=== PATIENT | female | born 1955 | race Caucasian/White ===

== ENCOUNTER 2020-01-02 18:07 | Outpatient (CLI) | payer OTHER, SELFPAY ==
[2020-01-02 18:21] LABS: Basophils Absolute Auto 0.05 K/mm3 (0.00-0.10); Basophils Percent Auto 0.6 % (0.0-1.0); Eosinophils Absolute Auto 0.46 K/mm3 (0.02-0.50); Eosinophils Percent Auto 5.5 % (1.0-6.0); Hematocrit 40.9 % (35.0-49.0); Hemoglobin 13.9 g/dL (12.0-15.0); Immature Granulocyte Absolute 0.02 K/mm3 (0.00-0.00); Immature Granulocyte Percent A 0.2 % (0.0-0.0); Lymphocytes Absolute Auto 2.99 K/mm3 (1.10-4.50); Lymphocytes Percent Auto 35.8 % (18.0-42.0); Mean Corpuscular Hemoglobin 32.1 pg (27.0-31.0); Mean Corpuscular Volume 94.5 fL (78.0-102.0); Mean Platelet Volume 10.1 fl (9.2-11.8); Monocytes Absolute Auto 0.65 K/mm3 (0.10-0.90); Monocytes Percent Auto 7.8 % (2.0-11.0); Neutrophils Absolute Auto 4.2 K/mm3 (1.7-7.2); Neutrophils Percent Auto 50.1 % (50.0-70.0); Platelet Count Result 242 K/mm3 (150-420); Red Blood Count 4.33 M/mm3 (4.20-5.40); Red Cell Distribution Width 12.3 % (11.6-14.4); White Blood Count 8.4 K/mm3 (4.8-10.8)
[2020-01-02 19:04] LABS: Alanine Aminotransferase 22 U/L (14-59); Albumin Level 3.6 g/dL (3.4-5.0); Alkaline Phosphatase 78 U/L (46-116); Anion Gap 12.4 mmol/L (7-16); Aspartate Amino Transferase 13 U/L (15-37); Bilirubin,Total 0.3 mg/dL (0.00-1.00); Blood Urea Nitrogen 19 mg/dL (7-18); Calcium 8.7 mg/dL (8.5-10.1); Carbon Dioxide 29 mmol/L (21-32); Chloride 100 mmol/L (98-108); Cholesterol 175 mg/dL (0-200); Creatine Kinase 58 U/L (26-192); Estimated Glomerular Filt Rate > 60; Glucose 230 mg/dL (70-99); HDL Direct 82 mg/dL (40-60); LDL Cholesterol Calculated 80 mg/dL (<130); Osmolality Calculated 293 mOsm/kg (285-295); Potassium 4.4 mmol/L (3.5-5.1); Sodium 137 mmol/L (136-145); Total Protein 6.6 g/dL (6.4-8.2); Triglycerides 67 mg/dL (0-150)
== END 2020-01-02 18:08 | disposition home or self-care (01) ==
LOC: CHSLAB 18:09
PROVIDERS: PCP Family Medicine; Visit Provider Family Medicine
DX: E78.2 Mixed hyperlipidemia (principal); I10 Essential (primary) hypertension
CPT/HCPCS: 36415; 80053; 80061; 82550; 85025

== ENCOUNTER 2020-02-09 10:40 | Outpatient (CLI) | payer OTHER, SELFPAY ==
[2020-02-09 11:12] LABS: Creatinine Urine 38.96 mg/dL (40-278)
[2020-02-09 11:20] LABS: MALB Creatinine Ratio 3.3 mg/g (0-30); Microalbumin Urine Random < 1.3 mg/L
== END 2020-02-09 10:41 | disposition home or self-care (01) ==
LOC: CHSLAB 10:41
PROVIDERS: PCP Family Medicine; Visit Provider Internal Medicine Endocrinology, Diabetes & Metabolism
DX: E10.9 Type 1 diabetes mellitus without complications (principal)
CPT/HCPCS: 82043

== ENCOUNTER 2020-06-13 08:32 | Outpatient (CLI) | payer OTHER, SELFPAY ==
[2020-06-13 09:17] LABS: SARS-CoV-2 Ag Negative (Negative)
== END 2020-06-13 08:33 | disposition home or self-care (01) ==
PROVIDERS: PCP Family Medicine; Visit Provider Family Medicine
DX: Z20.828 Contact with and (suspected) exposure to other viral communicable diseases (principal)
CPT/HCPCS: 87426

== ENCOUNTER 2020-06-13 14:09 | Outpatient (CLI) | payer OTHER, SELFPAY ==
--- NOTE | ~2020-06-13 | MM_ITS ---
EXAMINATION: MM screening priti BI w preethi HISTORY: Screening mammogram TECHNIQUE: Craniocaudal and mediolateral oblique 3-D tomosynthesis images were obtained and synthetic 2-D images were generated. CAD analysis was submitted and interpreted. COMPARISON: 05/31/2019, 05/11/2018, 05/04/2017 bilateral digital screening mammogram examinations BREAST PARENCHYMAL COMPOSITION: There are scattered areas of fibroglandular density. FINDINGS: There are occasional scattered bilateral benign calcifications. There is no evidence of gavino picious mass, calcification, or architectural distortion to suggest malignancy in either breast. Ther e has been no suspicious interval change. IMPRESSION: 1. No mammographic evidence of malignancy. 2. Recommend routine screening mammography in one year. BI-RADS Category 1: Negative Reviewed, dictated and finalized at location A. [employer]
--- NOTE | ~2020-06-13 | DEXA_ITS ---
Bone Density Report Name: Tara Agosto Age: 65 Sex: Female Ethnicity: White Date of : 1955 Indication: postmenopausal; screening for osteoporosis; height loss; Referring Provider: An Cabral Study: Bone densitometry was performed. Exam Date: June 13, 2020 Accession number: [id number] Bone Density: Region BMD T-score Z-score Classification AP Spine(L2, L3, L4) 1.292 1.9 3.6 Normal Femoral Neck (Left) 0.561 -2.6 -1.2 Osteoporosis Total Hip (Left) 0.912 -0.2 0.9 Normal Femoral Neck (Right) 0.678 -1.5 -0.1 Osteopenia Total Hip (Right) 0.917 -0.2 0.9 Normal Femoral Neck Mean 0.620 -2.1 -0.6 Osteopenia Total Hip Mean 0.915 -0.2 0.9 Normal World Health Organization criteria for BMD impression classify patients as: Normal (T-score at or above -1.0), Osteopenia (T-score between -1.0 and -2.5), or Osteoporosis (T-score at or below -2.5). 10-year Fracture Risk: FRAX not reported because: Some T-score for Spine Total or Hip Total or Femoral Neck at or below -2.5 Previous Exams: Region Exam Age BMD T-score BMD Change BMD Change Date g/cm2 vs Baseline vs Previous AP Spine (L2-L4) 06/13/2020 65 1.292 1.9 0.180 (16.2%)# 0.180 (16.2%)# 05/29/2012 57 1.112 0.3 Total Hip(Left) 06/13/2020 65 0.912 -0.2 -0.052 (-5.4%) -0.052 (-5.4%) 05/29/2012 57 0.965 0.2 Total Hip(Right) 06/13/2020 65 0.917 -0.2 -0.062 (-6.3%) -0.062 (-6.3%) 05/29/2012 57 0.979 0.3 *Denotes significance at 95% confidence level, LSC for AP Spine = 0.022 g/cm2, LSC for Total Hip = 0.027 g/cm2 # Denotes dissimilar scan types or analysis methods Clinical Information Provided by Patient: Patient maximum height was 67 Menopause Age: 47 Drinks caffeinated beverages Onset of menses at age 16 Number of children 0 Impression: The patient has osteoporosis, based on the Left Femoral Neck T-score. No significant bone loss was observed. Discussion: INCREASED RISK OF FRACTURE. BONE DENSITY IS UNDESIRABLY LOW AT ONE OR MORE SKELETAL SITES, CONSISTENT WITH POSTMENOPAUSAL OSTEOPOROSIS. This patient's lowest T-score meets the World Health Organization's (WHO) criteria for osteoporosis at one or more sites (T-score -2.5 or below). In untreated patients, the risk of osteoporotic fracture increases approximately two-fold for each 1.0 SD decrease in T-score. Low bone density is not the only risk factor for fracture; also consider factors suc
== END 2020-06-13 14:10 | disposition home or self-care (01) ==
LOC: CHSIMG 14:11
PROVIDERS: PCP Family Medicine; Visit Provider Student in an Organized Health Care Education/Training Program
DX: Z78.0 Asymptomatic menopausal state (principal); Z12.31 Encounter for screening mammogram for malignant neoplasm of breast
CPT/HCPCS: 77063; 77067; 77080

== ENCOUNTER 2020-07-23 15:58 | Outpatient (CLI) | payer OTHER, SELFPAY ==
--- NOTE | ~2020-07-23 | US_ITS ---
EXAMINATION: US pelvic complete w TV DATE: 07/23/2020 16:59 INDICATION: Postmenopausal bleeding TECHNIQUE: Multiple transabdominal and endovaginal sonographic images of the pelvis were obtained. COMPARISON: None. FINDINGS: The uterus measures 8.2 x 8.3 x 5.3 cm. Thickened endometrial complex measuring 2.3 cm with heterogen eous appearance with few small central cystic spaces. 3.9 x 3.1 cm subserosal fibroid at the right si de of the posterior fundus with prominent coarse shadowing calcifications. There are a few additional smaller shadowing calcifications likely related to additional fibroids. 6 mm anechoic nabothian cyst s at the cervix. The left and right ovaries are not visualized. There is no free fluid in the pelvis. IMPRESSION: 1. Heterogeneous thickened endometrial complex. Differential would include malignancy, endometrial hy perplasia, endometrial polyp or submucosal fibroid. Recommend further evaluation with hysteroscopy. 2. Multiple calcified uterine fibroids measuring up to 3.9 cm. Reviewed, dictated and finalized at location A. [employer] IMPRESSION: 1. Heterogeneous thickened endometrial complex. Differential would include mason gnancy, endometrial hyperplasia, endometrial polyp or submucosal fibroid. Recom mend further evaluation with hysteroscopy. 2. Multiple calcified uterine fibroids measuring up to 3.9 cm.
== END 2020-07-23 15:59 | disposition home or self-care (01) ==
PROVIDERS: PCP Family Medicine; Visit Provider Student in an Organized Health Care Education/Training Program
DX: N95.0 Postmenopausal bleeding (principal); D25.9 Leiomyoma of uterus, unspecified
CPT/HCPCS: 76830; 76856

== ENCOUNTER 2020-08-02 07:10 | Outpatient (CLI) | payer OTHER, SELFPAY ==
[2020-08-04 18:27] LABS: SARS-CoV-2 RNA PCR Negative
== END 2020-08-02 07:11 | disposition home or self-care (01) ==
LOC: CHSLAB 07:12
PROVIDERS: PCP Family Medicine; Visit Provider Family Medicine
DX: Z20.822 Contact with and (suspected) exposure to COVID-19 (principal)
CPT/HCPCS: C9803; U0003; U0005

== ENCOUNTER → 2020-08-19 03:54 | Outpatient (CLI) | payer OTHER, SELFPAY ==
[2020-08-20 18:18] LABS: SARS-CoV-2 RNA PCR Negative
== END ==
PROVIDERS: PCP Family Medicine; Visit Provider Student in an Organized Health Care Education/Training Program
DX: Z01.812 Encounter for preprocedural laboratory examination (principal); Z20.822 Contact with and (suspected) exposure to COVID-19
CPT/HCPCS: C9803; U0003; U0005

== ENCOUNTER 2020-08-19 14:55 | Outpatient (CLI) | payer OTHER, SELFPAY ==
--- NOTE | 2020-08-19 14:59 | ECG_ITS ---
Measurements Intervals [place] Rate: 55 P: -7 MA: 234 QRS: 13 QRSD: 113 T: 35 QT: 447 QTc: 428 Interpretive Statements SINUS BRADYCARDIA WITH FIRST DEGREE AV BLOCK INTRAVENTRICULAR CONDUCTION DELAY POOR R WAVE PROGRESSION, ANTERIOR LEADS BASELINE ARTIFACT- I, II, III, AVR, AVL, AVF ABNORMAL ECG Electronically Signed On 08-19-2020 15:19:40 [employer] by Chidi Worthy D.O.
[2020-08-19 15:38] LABS: Anion Gap 6 mmol/L (8-16); Blood Urea Nitrogen 17 mg/dL (7-17); Calcium 8.6 mg/dL (8.4-10.2); Carbon Dioxide 30 mmol/L (22-30); Chloride 102 mmol/L (98-107); Estimated Glomerular Filt Rate > 60; Glucose 212 mg/dL (65-105); Sodium 138 mmol/L (137-145)
[2020-08-19 16:02] LABS: Potassium 3.9 mmol/L (3.4-5.0)
== END 2020-08-19 14:56 | disposition home or self-care (01) ==
PROVIDERS: Anesthesiology; PCP Family Medicine; Visit Provider Student in an Organized Health Care Education/Training Program
DX: E78.5 Hyperlipidemia, unspecified (principal); I48.91 Unspecified atrial fibrillation; E11.9 Type 2 diabetes mellitus without complications; I45.9 Conduction disorder, unspecified; I44.0 Atrioventricular block, first degree
CPT/HCPCS: 36415; 80048; 93005

== ENCOUNTER 2020-08-22 00:55 | Day surgery (SDC) | payer OTHER, SELFPAY ==
[2020-08-19 11:27] VITALS: BMI 43.6
--- NOTE | 2020-08-21 15:42 | WPDANESEPPF ---
Anes - Initial Pre Proc Eval Procedure: Operation Date: 08/22/20 07:30 Proposed Procedures p Hysteroscopy Dilation and Curettage, Possible Myosure - An Cabral MD Date/Time: 08/21/20 15:42 Surgeon: An Cabral MD Pre Op Diagnosis: Thickened Endometrium Patient Data Age: 65 Gender: F Height: 1.68 m Weight: 122.7 kg Allergies Allergy/AdvReac Type Severity Reaction Status Date / Time Cephalosporins Allergy Mild RASH Verified 08/22/20 06:11 Sulfa (Sulfonamide Allergy Mild Rash Verified 08/22/20 06:11 Antibiotics) cefuroxime Allergy Unknown Rash Verified 08/22/20 06:11 Home Medications Medication Instructions Recorded Confirmed Type apixaban 5 mg tablet 5 mg PO BID 06/21/19 08/19/20 History atorvastatin 20 mg tablet 20 mg PO DAILY 06/21/19 08/19/20 History blood sugar diagnostic #10 each 06/21/19 04/22/20 History blood sugar diagnostic #10 each 06/21/19 04/22/20 History citalopram 40 mg tablet 20 mg PO DAILY 06/21/19 08/19/20 History diltiazem HCl 240 mg 240 mg PO DAILY 06/21/19 08/19/20 History capsule,extended release 24 hr doxazosin 2 mg tablet 2 mg PO DAILY 06/21/19 08/19/20 History fluticasone propionate 50 2 spray NASAL BID 06/21/19 08/19/20 History mcg/actuation nasal spray,suspension furosemide 20 mg tablet 20 mg PO DAILY tablet 06/21/19 08/19/20 History pen needle, diabetic 32 gauge x #400 each 07/05/19 04/22/20 Rx 5/32 glucagon 0.5 mg/0.1 mL 1 mg SUBCUT ONCE #0.1 ml 04/22/20 08/19/20 Rx subcutaneous auto-injector vitamin B complex 1 tablet PO DAILY 07/15/20 08/19/20 History risedronate 35 mg tablet 35 mg PO WEEKLY #12 tablet 07/17/20 08/19/20 Rx flash glucose sensor See Rx Instructions .ROUTE 07/29/20 Rx .COMPLEX #4 each cyanocobalamin (vitamin B-12) 1,000 mcg PO DAILY 08/19/20 08/19/20 History [Vitamin B-12] insulin glargine [Lantus Solostar 35 unit SUBCUT HS 08/19/20 08/19/20 History U-100 Insulin] insulin lispro [Humalog KwikPen 12 unit SUBCUT AC 08/19/20 08/19/20 History Insulin] losartan 100 mg PO DAILY 08/19/20 08/19/20 History multivitamin 1 tablet PO DAILY 08/19/20 08/19/20 History apixaban [Eliquis] 5 mg PO BID 08/22/20 08/22/20 History Patient hx anesthesia problems: none Family hx anesthesia problems: none PMFSH Past Medical History Medical History (Updated 08/21/20 @ 15:43 by Flex Zee MD) Arthritis Atrial fibrillation with controlled ventricular rate Depression Diabetic peripheral neuropathy Dyslipidemia Edema of both legs Essential hypertension Morbid obesity with BMI of 40.0-44.9, adult JOHANA on CPAP Osteopenia after menopause Osteoporosis Osteoporosis Other and unspecified hyperlipidemia Pure hypercholesterolemia Umbilical hernia Surgical History Surgical History History of colonoscopy Family History Family History Father Hypertension Heart disease Mother Hypertension Family history of Parkinson's disease Sibling AVM (arteriovenous malformation) brain Other Diabetes mellitus Family history of congestive heart failure Family history of obesity Social History Social History Smoking status: Never smoker Second hand tobacco smoke exposure: No Alcohol intake: current Living arrangements: alone Spiritual care concerns: No Anes - Eval Final PreProcedure Day of Procedure 08/21/20 15:42 Patient weight: morbidly obese Heart: regular rate and rhythm Lungs: clear to auscultation and normal air movement Airway: Mallampati scale class II Neurological: alert and oriented Last oral intake: >/= 8 hours ASA classification: III Emergent: no Anesthetic plan: proceed Anesthesia type and monitoring: general LMA and ETT Informed Consent: The patient's anesthetic plan and its attendant risks and benefits were discussed with the pa
--- NOTE | 2020-08-21 16:21 | PM.IMHP ---
H&P: HPI History of Present Illness Date/Time: 08/21/20 16:21 Patient is a 65 year old woman with a history of postmenopausal bleeding. Patient reported an episode of postmenopausal bleeding in 06/2020. She reported noticing small blood clots in toilet bowl as well as on toilet tissue after using the restroom. Patient denies any pelvic pain. A pelvic US was performed and showed a thickened ES measuring 2.3cm. Further evaluation and management options discussed. Decision was made to proceed with a hysteroscopy/D&C. Chief Complaint: postmenopausal bleeding Narrative: Tara Agosto is a 65 year old female Review of Systems Review of Systems: All systems reviewed & are unremarkable except as noted in HPI and below Constitutional: Constitutional: Reports as per HPI, Reports no additional constitutional complaints, Denies chills, Denies fever(s), Denies headache(s) and Denies night sweats Eyes: Eyes: Reports as per HPI and Reports no additional eye complaints ENT: Reports system reviewed and no additional complaints, except as documented, Reports as per HPI, Reports Normal hearing present and Denies headache(s) Cardiovascular: Cardiovascular: Reports as per HPI, Reports no additional cardiovascular complaints, Denies chest pain and Denies dyspnea Respiratory: Respiratory: Reports as per HPI, Reports no additional respiratory complaints, Denies cough and Denies dyspnea Gastrointestinal: Gastrointestinal: Reports as per HPI, Reports no additional gastrointestinal complaints, Denies abdominal pain, Denies change in bowel habits, Denies change in stool character, Denies nausea and Denies vomiting Genitourinary: Genitourinary: Reports no additional female genitourinary complaints, Reports as per HPI, Denies abnormal vaginal bleeding, Denies genital lesions, Denies hot flashes, Denies dyspareunia, Denies pelvic pain, Denies sexual dysfunction, Denies urinary incontinence, Denies vaginal discharge, Denies vaginal dryness and Denies vaginal odor Musculoskeletal: Musculoskeletal: Reports no additional musculoskeletal complaints and Reports as per HPI Integumentary/Breasts: Skin/Breast: Reports system reviewed and no additional complaints, except as docu, Reports as per HPI, Denies breast pain and Denies nipple discharge Neurologic: Reports system reviewed and no additional complaints, except as documented, Reports as per HPI, Reports Normal hearing present and Denies headache(s) Psychiatric: Psychiatric: Reports no additional psychiatric complaints, Reports as per HPI, Denies anxiety and Denies depression Endocrine: Endocrine: Reports no additional endocrine complaints and Reports as per HPI Hematologic/Lymphatic: Hematologic/Lymphatic: Reports no additional hematologic/lymphatic complaints and Reports as per HPI Allergic/Immunologic: Allergic/Immunologic: Reports no additional allergic/immunologic complaints and Reports as per HPI [facility] Past Medical History Medical History (Updated 08/21/20 @ 15:43 by Flex Zee MD) Arthritis Atrial fibrillation with controlled ventricular rate Depression Diabetic peripheral neuropathy Dyslipidemia Edema of both legs Essential hypertension Morbid obesity with BMI of 40.0-44.9, adult JOHANA on CPAP Osteopenia after menopause Osteoporosis Osteoporosis Other and unspecified hyperlipidemia Pure hypercholesterolemia Umbilical hernia Surgical History Surgical History History of colonoscopy Family History Family History Father Hypertension Heart disease Mother Hypertension Family history of Parkinson's disease Sibling AVM (arteriovenous malformation) brain Other Diabetes mellitus Family history of congestive heart failure Family history of obesity Social History Social History Smoking status: Never smoker Second hand
[2020-08-22] VITALS (9 sets, daily range): BP systolic 133–166; BP diastolic 47–75; PULSE 62–82; RESP 12–20; TEMP 36.6–37.2; O2SAT 93–100
[2020-08-22] MEDS: ACETAMINOPHEN 500 MG TABLET 1000 MG PO (06:25)
[2020-08-22] MEDS: LACTATED RINGERS 1,000 ML 30 ML IV CONT (06:30)
[2020-08-22 06:37] LABS: Glucose Point of Care 293 (65-105)
--- NOTE | 2020-08-22 07:06 | SUR.PREOP ---
dr washington aware of accucheck 293.
--- NOTE | 2020-08-22 07:21 | WPDHPUPDATE1 ---
History and Physical Update Update Date/Time: 08/22/20 07:21 History and Physical has been reviewed, including an updated exam of the patient. There are NO changes in the patient's condition. Risks, benefits, and alternatives have been discussed and questions answered. Patient agrees to proceed with procedure.
--- NOTE | 2020-08-22 09:29 | SUR.OPER ---
11,000ML [place] [address] OUT FOR HYSTEROSCOPY DEFICET BY SUCTION CANISTERS 845ML LARGE AMOUNT OF FLUID ON FLOOR AND SOAKED IN BLANKETS/ ESTIMATE DEFICET TOTAL 400ML PER ANESTHESIA AND DR MCCRACKEN.
[2020-08-22 09:34] LABS: Glucose Point of Care 291 (65-105)
--- NOTE | 2020-08-22 09:34 | SUR.PHASEI ---
Dr Zee notified of blood sugar 291. No further orders received.
--- NOTE | 2020-08-22 11:53 | P.OP_ITS ---
Procedure Note - Detailed Date of procedure: 08/22/20 Pre-op diagnosis: Thickened Endometrium postmenopausal bleeding Post-op diagnosis: same Procedure performed: Hysteroscopy, dilation and curettage, endometrial polypectomy with MyoSure Description of procedure: The patient was taken to the operating room where she self-transferred to the operating room table. She was placed in dorsal supine position. Anesthesia was administered and found to be adequate. The patient was repositioned in dorsal lithotomy position with the use of Mehrdad stirrups. She was prepped and draped in the usual sterile fashion. A red rubber catheter was used to drain the bladder of approximately 50 cc of yellow urine. A bivalve speculum was inserted the vagina. The cervix was well visualized. The anterior lip of the cervix was grasped with a single-tooth tenaculum. 10 cc of 1% lidocaine was administered for paracervical block. 5 cc of lidocaine was administered on either side. The cervix was serially dilated to accommodate a hy steroscope. The hysteroscope was advanced through the cervix where a large obstructing endometrial polyp was visualized. A few smaller endometrial polyps were also visualized. The visualized portions, however limited, of the surrounding endometrium appeared to be within normal limits. Decision was made to convert to an operative hysteroscope. Operative hysteroscope was advanced into the endometrial cavity and with the use of MyoSure device, the polyp was excised and evacuated. Due to the large size of the polyp, a large quantity of fluid was utilized during this procedure and periodic deficit checks were performed. When the majority of the polyp as well as smaller additional polyps were evacuated, the procedure was deemed complete. Tubal ostia were not well visualized. The remainder of the endometrial cavity appeared to be grossly normal. A small rigid curette was introduced into the endometrial cavity. All quadrants were explored. A small amount of tissue was obtained. Both the endometrial shavings as well as endometrial curettings were prepared to be sent to pathology for analysis. The tenaculum was removed from the cervix. Minimal oozing was noted. Hemostasis was achieved with pressure. The speculum was removed. A moderate amount of oozing was noted from the right side of the vaginal wall. Upon further inspection, a small abrasion likely caused by the speculum was noted. Two small [id number] sutures using 3-0 Vicryl were placed. Excellent hemostasis was noted. The vagina was cleansed and dried as was the remainder of the patient. The patient was taken out of the dorsal lithotomy position and awakened from anesthesia without difficulty. She was transferred to recovery room in stable condition. All sponge, lap, and instrument counts were correct at the procedure. Anesthesia: MAC Surgeon: An Cabral MD Supervisor Pipe Manufacture: None Estimated blood loss (mL): 50 IV fluids (mL): 900 Urine output (mL): 50 Drains: No (50cc yellow urine drained prior to procedure) Packing: No Pathology: yes (endometrial shavings, endometrial curettings) Complications: No immediate complications Condition: stable Disposition: same day Findings: Hysteroscopic fluid: 11,000cc in/10,600cc out Large obstructing endometrial polyp with a few smaller polyps visualized within endometrial cavity; rest of cavity appeared grossly normal; moderate amount of tissue obtained with MyoSures; minimal tissue obtained with curettage; small area of bleeding along right vaginal wall from speculum at end of procedure
== END 2020-08-22 11:06 | disposition home or self-care (01) ==
PROVIDERS: PCP Family Medicine; Visit Provider Student in an Organized Health Care Education/Training Program
PROC: 0U5B8ZZ Destruction of Endometrium, Via Natural or Artificial Opening Endoscopic (ICD-10-PCS; CPT 58563; principal; 2020-08-22 07:30)
DX: N95.0 Postmenopausal bleeding (principal); N85.00 Endometrial hyperplasia, unspecified; N85.8 Other specified noninflammatory disorders of uterus; I48.91 Unspecified atrial fibrillation; E11.42 Type 2 diabetes mellitus with diabetic polyneuropathy; I10 Essential (primary) hypertension; G47.33 Obstructive sleep apnea (adult) (pediatric); M81.0 Age-related osteoporosis without current pathological fracture; E78.5 Hyperlipidemia, unspecified; E66.01 Morbid (severe) obesity due to excess calories; Z68.41 Body mass index [BMI] 40.0-44.9, adult; Z79.01 Long term (current) use of anticoagulants; Z79.4 Long term (current) use of insulin
CPT/HCPCS: 58558; 82948; 88305; A9270; J2405; J2704; J7030; J7120

== ENCOUNTER 2020-08-26 16:59 | Emergency (ER) | payer OTHER, SELFPAY ==
[2020-08-26 17:05] VITALS: BP 177/50; PULSE 82; RESP 17; TEMP 37; O2SAT 97
--- NOTE | 2020-08-26 17:27 | ED.FEMALEGU ---
HPI - Female Genitourinary General Chief complaint: Vaginal Bleeding Stated complaint: heavy bleeding Source: patient Limitations: no limitations History of Present Illness HPI Narrative: Pt had a D and C last week and today she passed a large clot, after then she noticed increased heavy bleeding. The clot was about an hour ago. She was concerend because her bleeding had been pretty controlled . MD elicited complaint: vaginal bleeding Onset (ago): minute(s) Location of symptoms: vaginal Severity: mild Vaginal bleeding: heavy, dark red and clots Associated symptoms: denies other symptoms Related Data Home Medications Medication Instructions Recorded Confirmed apixaban 5 mg tablet 5 mg PO BID 06/21/19 08/19/20 atorvastatin 20 mg tablet 20 mg PO DAILY 06/21/19 08/19/20 blood sugar diagnostic #10 each 06/21/19 04/22/20 blood sugar diagnostic #10 each 06/21/19 04/22/20 citalopram 40 mg tablet 20 mg PO DAILY 06/21/19 08/19/20 diltiazem HCl 240 mg 240 mg PO DAILY 06/21/19 08/19/20 capsule,extended release 24 hr doxazosin 2 mg tablet 2 mg PO DAILY 06/21/19 08/19/20 fluticasone propionate 50 2 spray NASAL BID 06/21/19 08/19/20 mcg/actuation nasal spray,suspension furosemide 20 mg tablet 20 mg PO DAILY tablet 06/21/19 08/19/20 vitamin B complex 1 tablet PO DAILY 07/15/20 08/19/20 cyanocobalamin (vitamin B-12) 1,000 mcg PO DAILY 08/19/20 08/19/20 [Vitamin B-12] insulin glargine [Lantus Solostar 35 unit SUBCUT HS 08/19/20 08/19/20 U-100 Insulin] insulin lispro [Humalog KwikPen 12 unit SUBCUT AC 08/19/20 08/19/20 Insulin] losartan 100 mg PO DAILY 08/19/20 08/19/20 multivitamin 1 tablet PO DAILY 08/19/20 08/19/20 apixaban [Eliquis] 5 mg PO BID 08/22/20 08/22/20 Allergies Allergy/AdvReac Type Severity Reaction Status Date / Time Cephalosporins Allergy Mild RASH Verified 08/22/20 06:11 Sulfa (Sulfonamide Allergy Mild Rash Verified 08/22/20 06:11 Antibiotics) cefuroxime Allergy Unknown Rash Verified 08/22/20 06:11 Review of Systems Review of Systems: All systems reviewed & are unremarkable except as noted in HPI and below Constitutional: Constitutional: Reports no additional constitutional complaints Eyes: Eyes: Reports no additional eye complaints ENT: Reports system reviewed and no additional complaints, except as documented Cardiovascular: Cardiovascular: Reports no additional cardiovascular complaints Respiratory: Respiratory: Reports no additional respiratory complaints Gastrointestinal: Gastrointestinal: Reports no additional gastrointestinal complaints Genitourinary: Genitourinary: Reports abnormal vaginal bleeding Musculoskeletal: Musculoskeletal: Reports no additional musculoskeletal complaints Integumentary/Breasts: Skin/Breast: Reports system reviewed and no additional complaints, except as docu Neurologic: Reports system reviewed and no additional complaints, except as documented Psychiatric: Psychiatric: Reports no additional psychiatric complaints Endocrine: Endocrine: Reports no additional endocrine complaints Hematologic/Lymphatic: Hematologic/Lymphatic: Reports no additional hematologic/lymphatic complaints PMFSH Past Medical History Medical History Arthritis Atrial fibrillation with controlled ventricular rate Depression Diabetic peripheral neuropathy Dyslipidemia Edema of both legs Essential hypertension Morbid obesity with BMI of 40.0-44.9, adult JOHANA on CPAP Osteopenia after menopause Osteoporosis Osteoporosis Other and unspecified hyperlipidemia Pure hypercholesterolemia Umbilical hernia Surgical History Surgical History History of colonoscopy Family History Family History Father Hypertension Heart disease Mother Hypertension Family history of Parkinson's disease Sibling AVM (cayetano
[2020-08-26 17:40] LABS: Basophils Absolute Auto 0.06 K/mm3 (0.00-0.10); Basophils Percent Auto 0.6 % (0.0-1.0); Eosinophils Absolute Auto 0.29 K/mm3 (0.02-0.50); Eosinophils Percent Auto 2.9 % (1.0-6.0); Hematocrit 40.9 % (35.0-49.0); Immature Granulocyte Absolute 0.03 K/mm3 (0.00-0.00); Immature Granulocyte Percent A 0.3 % (0.0-0.0); Lymphocytes Absolute Auto 2.55 K/mm3 (1.10-4.50); Lymphocytes Percent Auto 25.3 % (18.0-42.0); Mean Corpuscular HGB Conc 34.2 g/dL (32.0-36.0); Mean Corpuscular Hemoglobin 32.8 pg (27.0-31.0); Mean Corpuscular Volume 95.8 fL (78.0-102.0); Mean Platelet Volume 10.6 fl (9.2-11.8); Monocytes Absolute Auto 0.67 K/mm3 (0.10-0.90); Monocytes Percent Auto 6.7 % (2.0-11.0); Neutrophils Absolute Auto 6.5 K/mm3 (1.7-7.2); Neutrophils Percent Auto 64.2 % (50.0-70.0); Platelet Count Result 305 K/mm3 (150-420); Red Blood Count 4.27 M/mm3 (4.20-5.40); Red Cell Distribution Width 12.3 % (11.6-14.4); White Blood Count 10.1 K/mm3 (4.8-10.8)
--- NOTE | 2020-08-26 17:43 | PC.NURSE ---
VAGINAL EXAM COMPLETE PER DR DAVIS
[2020-08-26 17:51] LABS: Anion Gap 9 mmol/L (8-16); Blood Urea Nitrogen 22 mg/dL (7-18); Calcium 8.9 mg/dL (8.5-10.1); Carbon Dioxide 29 mmol/L (21-32); Chloride 100 mmol/L (98-108); Estimated Glomerular Filt Rate 43; Glucose 224 mg/dL (70-99); Osmolality Calculated 296 mOsm/kg (285-295); Potassium 3.7 mmol/L (3.5-5.1); Sodium 138 mmol/L (136-145)
[2020-08-26 17:55] LABS: INR 1.1; Partial Thromboplastin Time 25.9 SEC (23.90-30.70); Prothrombin Time 11.4 Seconds (9.50-12.10)
[2020-08-26 18:23] VITALS: RESP 17
== END 2020-08-26 18:26 | disposition home or self-care (01) ==
PROVIDERS: Emergency Provider Emergency Medicine; PCP Family Medicine
DX: N93.9 Abnormal uterine and vaginal bleeding, unspecified (principal); I48.91 Unspecified atrial fibrillation; E78.5 Hyperlipidemia, unspecified; R60.0 Localized edema; I10 Essential (primary) hypertension; M81.0 Age-related osteoporosis without current pathological fracture
CPT/HCPCS: 36415; 80048; 85025; 85610; 85730; 99282; 99284

== ENCOUNTER 2020-10-08 14:30 | Outpatient (RCR) | payer OTHER, SELFPAY ==
[2020-08-05 14:03] VITALS: BMI 43.7
[2020-08-05 14:06] VITALS: BMI 43.7
== END 2020-10-08 17:07 | disposition home or self-care (01) ==
LOC: ANHDMC 14:30
PROVIDERS: PCP Family Medicine; Visit Provider Internal Medicine Endocrinology, Diabetes & Metabolism
DX: E10.65 Type 1 diabetes mellitus with hyperglycemia (principal); Z71.3 Dietary counseling and surveillance; Z71.89 Other specified counseling
CPT/HCPCS: 97802; G0108; G0109

== ENCOUNTER 2020-12-16 09:09 | Outpatient (RCR) | payer OTHER, SELFPAY | END 2020-12-16 11:34 | disposition home or self-care (01) | LOC: ANHDMC 09:09 | PROVIDERS: PCP Family Medicine; Visit Provider Internal Medicine Endocrinology, Diabetes & Metabolism | DX: E10.65 Type 1 diabetes mellitus with hyperglycemia (principal); Z71.89 Other specified counseling | CPT/HCPCS: G0108 ==

== ENCOUNTER → 2020-12-30 01:27 | Outpatient (CLI) | payer OTHER, SELFPAY ==
[2021-01-01 08:33] LABS: SARS-CoV-2 RNA PCR Negative
== END ==
PROVIDERS: PCP Family Medicine; Visit Provider Internal Medicine Gastroenterology
DX: Z01.812 Encounter for preprocedural laboratory examination (principal); Z20.822 Contact with and (suspected) exposure to COVID-19
CPT/HCPCS: C9803; U0003; U0005

== ENCOUNTER 2021-01-02 01:06 | Day surgery (SDC) | payer OTHER, SELFPAY ==
[2020-12-16 13:27] VITALS: BMI 45.1
--- NOTE | 2021-01-01 12:25 | WPDANESEPPF ---
Anes - Initial Pre Proc Eval Procedure: Operation Date: 01/02/21 08:00 Proposed Procedures p Screening Colonoscopy - Jatin Ospina MD Date/Time: 01/01/21 12:25 Surgeon: Jatin Ospina MD Pre Op Diagnosis: neoplasm screening Patient Data Age: 65 Gender: F Height: 1.68 m Weight: 127 kg Allergies Allergy/AdvReac Type Severity Reaction Status Date / Time Cephalosporins Allergy Mild RASH Verified 01/02/21 06:46 Sulfa (Sulfonamide Allergy Mild Rash Verified 01/02/21 06:46 Antibiotics) cefuroxime Allergy Unknown Rash Verified 01/02/21 06:46 Home Medications Medication Instructions Recorded Confirmed Type atorvastatin 20 mg tablet 20 mg PO DAILY 06/21/19 01/02/21 History blood sugar diagnostic #10 each 06/21/19 01/02/21 History blood sugar diagnostic #10 each 06/21/19 01/02/21 History citalopram 40 mg tablet 20 mg PO DAILY 06/21/19 01/02/21 History diltiazem HCl 240 mg 240 mg PO DAILY 06/21/19 01/02/21 History capsule,extended release 24 hr doxazosin 2 mg tablet 2 mg PO DAILY 06/21/19 01/02/21 History fluticasone propionate 50 2 spray NASAL BID 06/21/19 01/02/21 History mcg/actuation nasal spray,suspension furosemide 20 mg tablet 20 mg PO DAILY tablet 06/21/19 01/02/21 History pen needle, diabetic 32 gauge x #400 each 07/05/19 01/02/21 Rx 5/32 glucagon 0.5 mg/0.1 mL 1 mg SUBCUT ONCE #0.1 ml 04/22/20 01/02/21 Rx subcutaneous auto-injector cyanocobalamin (vitamin B-12) 1,000 mcg PO DAILY 08/19/20 01/02/21 History [Vitamin B-12] losartan 100 mg PO DAILY 08/19/20 01/02/21 History multivitamin 1 tablet PO DAILY 08/19/20 01/02/21 History apixaban [Eliquis] 5 mg PO BID 08/22/20 01/02/21 History blood sugar diagnostic #10 ea 09/11/20 01/02/21 Rx risedronate 35 mg tablet 35 mg PO WEEKLY #12 tablet 10/08/20 01/02/21 Rx insulin lispro 100 unit/mL See Rx Instructions .ROUTE 12/09/20 01/02/21 Rx subcutaneous solution .COMPLEX #90 ml sodium,potassium,mag sulfates 17.5 See Rx Instructions PO .COMPLEX 12/15/20 01/02/21 Rx gram-3.13 gram-1.6 gram oral soln #354 ml Patient hx anesthesia problems: none Family hx anesthesia problems: none PMFSH Past Medical History Medical History Arthritis Atrial fibrillation with controlled ventricular rate Depression Diabetic peripheral neuropathy Dyslipidemia Edema of both legs Essential hypertension Morbid obesity with BMI of 40.0-44.9, adult JOHANA on CPAP Osteopenia after menopause Osteoporosis Osteoporosis Other and unspecified hyperlipidemia Pure hypercholesterolemia Umbilical hernia Surgical History Surgical History History of colonoscopy History of D&C Family History Family History Father Hypertension Heart disease Mother Hypertension Family history of Parkinson's disease Sibling AVM (arteriovenous malformation) brain Other Diabetes mellitus Family history of congestive heart failure Family history of obesity Social History Social History Smoking status: Never smoker Second hand tobacco smoke exposure: No Alcohol intake: current Drinks per week: 2 Substance use: never Substance use type: does not use Living arrangements: alone Spiritual care concerns: No Anes - Eval Final PreProcedure Day of Procedure 01/01/21 12:25 Patient weight: morbidly obese Heart: regular rate and rhythm Lungs: clear to auscultation and normal air movement Airway: Mallampati scale class II Neurological: alert and oriented Last oral intake: >/= 8 hours ASA classification: III Emergent: no Anesthetic plan: proceed Anesthesia type and monitoring: general GIVS Informed Consent: The patient's anesthetic plan and its attendant risks and benefits were discussed with the patient/family/POA. Questions were so
[2021-01-02 06:48] VITALS: BP 161/75; PULSE 62; RESP 18; TEMP 36.4; O2SAT 98; BMI 44.8
[2021-01-02] MEDS: LACTATED RINGERS 1,000 ML 150 ML IV CONT (07:03)
[2021-01-02 07:05] LABS: Glucose Point of Care 171 mg/dl (65-105)
--- NOTE | 2021-01-02 07:25 | WPDGICN ---
Assessment and Plan Assessment and plan (1) Encounter for screening colonoscopy: Code(s): Z12.11 - Encounter for screening for malignant neoplasm of colon Status: Acute Assessment and Plan: Patient presents for screening colonoscopy. Last exam more than 10 years ago. Patient appears to be at average risk for colon polyps. Further recommendations will be given after endoscopy (2) Morbid obesity with BMI of 40.0-44.9, adult: Code(s): E66.01 - Morbid (severe) obesity due to excess calories; Z68.41 - Body mass index [BMI]40.0-44.9, adult Status: Acute GI Consult Note Consult date/time: 01/02/21 07:25 HPI: Tara Agosto is a 65 year old female Presents for screening colonoscopy. Patient states her last exam was at least 10 years ago. Patient states that her current weight appetite and bowel movements are normal. She denies abdominal pain. She has had no bleeding. Her family history is noncontributory. Past medical history is significant for diabetes mellitus, atrial fibrillation, and obesity. Review of Systems Review of Systems: All systems reviewed & are unremarkable except as noted in HPI and below PMFSH Past Medical History Medical History Arthritis Atrial fibrillation with controlled ventricular rate Depression Diabetic peripheral neuropathy Dyslipidemia Edema of both legs Essential hypertension Morbid obesity with BMI of 40.0-44.9, adult JOHANA on CPAP Osteopenia after menopause Osteoporosis Osteoporosis Other and unspecified hyperlipidemia Pure hypercholesterolemia Umbilical hernia Surgical History Surgical History History of colonoscopy History of D&C Family History Family History Father Hypertension Heart disease Mother Hypertension Family history of Parkinson's disease Sibling AVM (arteriovenous malformation) brain Other Diabetes mellitus Family history of congestive heart failure Family history of obesity Social History Social History Smoking status: Never smoker Second hand tobacco smoke exposure: No Alcohol intake: current Drinks per week: 2 Substance use: never Substance use type: does not use Living arrangements: alone Spiritual care concerns: No Meds Home Medications and Allergies Home Medications Medication Instructions Recorded Confirmed Type atorvastatin 20 mg tablet 20 mg PO DAILY 06/21/19 01/02/21 History blood sugar diagnostic #10 each 06/21/19 01/02/21 History blood sugar diagnostic #10 each 06/21/19 01/02/21 History citalopram 40 mg tablet 20 mg PO DAILY 06/21/19 01/02/21 History diltiazem HCl 240 mg 240 mg PO DAILY 06/21/19 01/02/21 History capsule,extended release 24 hr doxazosin 2 mg tablet 2 mg PO DAILY 06/21/19 01/02/21 History fluticasone propionate 50 2 spray NASAL BID 06/21/19 01/02/21 History mcg/actuation nasal spray,suspension furosemide 20 mg tablet 20 mg PO DAILY tablet 06/21/19 01/02/21 History pen needle, diabetic 32 gauge x #400 each 07/05/19 01/02/21 Rx glucagon 0.5 mg/0.1 mL 1 mg SUBCUT ONCE #0.1 ml 04/22/20 01/02/21 Rx subcutaneous auto-injector cyanocobalamin (vitamin B-12) 1,000 mcg PO DAILY 08/19/20 01/02/21 History [Vitamin B-12] losartan 100 mg PO DAILY 08/19/20 01/02/21 History multivitamin 1 tablet PO DAILY 08/19/20 01/02/21 History apixaban [Eliquis] 5 mg PO BID 08/22/20 01/02/21 History blood sugar diagnostic #10 ea 09/11/20 01/02/21 Rx risedronate 35 mg tablet 35 mg PO WEEKLY #12 tablet 10/08/20 01/02/21 Rx insulin lispro 100 unit/mL See Rx Instructions .ROUTE 12/09/20 01/02/21 Rx subcutaneous solution .COMPLEX #90 ml sodium,potassium,mag sulfates 17.5 See Rx Instructions PO .COMPLEX 12/15/20 01/02/21 Rx gram-3.13 gram-1.6 gram
[2021-01-02 08:37] VITALS: BP 129/56; PULSE 69; O2SAT 98
[2021-01-02 08:47] VITALS: BP 149/71; PULSE 74; O2SAT 96
[2021-01-02 08:57] VITALS: BP 156/81; PULSE 70; O2SAT 99
[2021-01-02 08:58] LABS: Glucose Point of Care 182 mg/dl (65-105)
--- NOTE | 2021-01-02 09:07 | SUR.PHASEII ---
Dr. Ospina indicated Eliquis should be resumed in two days, 01/04/21.
== END 2021-01-02 09:09 | disposition home or self-care (01) ==
PROVIDERS: PCP Family Medicine; Visit Provider Internal Medicine Gastroenterology
PROC: 0DJD8ZZ Inspection of Lower Intestinal Tract, Via Natural or Artificial Opening Endoscopic (ICD-10-PCS; CPT 45378; principal; 2021-01-02 08:00)
DX: Z12.11 Encounter for screening for malignant neoplasm of colon (principal); K64.8 Other hemorrhoids; K63.5 Polyp of colon; M19.90 Unspecified osteoarthritis, unspecified site; I48.91 Unspecified atrial fibrillation; F32.9 Major depressive disorder, single episode, unspecified; E11.40 Type 2 diabetes mellitus with diabetic neuropathy, unspecified; R60.0 Localized edema; I10 Essential (primary) hypertension; G47.33 Obstructive sleep apnea (adult) (pediatric); M81.0 Age-related osteoporosis without current pathological fracture; K42.9 Umbilical hernia without obstruction or gangrene; E78.5 Hyperlipidemia, unspecified; Z79.82 Long term (current) use of aspirin; Z79.4 Long term (current) use of insulin; E66.01 Morbid (severe) obesity due to excess calories; Z68.41 Body mass index [BMI] 40.0-44.9, adult; E78.00 Pure hypercholesterolemia, unspecified
CPT/HCPCS: 45385; 82948; 88305; J2001; J2704; J7120

== ENCOUNTER 2021-03-07 07:03 | Outpatient (CLI) | payer OTHER, SELFPAY ==
[2021-03-07 07:16] LABS: Basophils Absolute Auto 0.04 K/mm3 (0.00-0.10); Basophils Percent Auto 0.6 % (0.0-1.0); Eosinophils Absolute Auto 0.23 K/mm3 (0.02-0.50); Eosinophils Percent Auto 3.2 % (1.0-6.0); Hematocrit 42.7 % (35.0-49.0); Hemoglobin 14.5 g/dL (12.0-15.0); Immature Granulocyte Absolute 0.02 K/mm3 (0.00-0.00); Immature Granulocyte Percent A 0.3 % (0.0-0.0); Lymphocytes Absolute Auto 1.43 K/mm3 (1.10-4.50); Lymphocytes Percent Auto 19.8 % (18.0-42.0); Mean Corpuscular Hemoglobin 32.5 pg (27.0-31.0); Mean Corpuscular Volume 95.7 fL (78.0-102.0); Mean Platelet Volume 9.9 fl (9.2-11.8); Monocytes Absolute Auto 0.47 K/mm3 (0.10-0.90); Monocytes Percent Auto 6.5 % (2.0-11.0); Neutrophils Percent Auto 69.6 % (50.0-70.0); Platelet Count Result 251 K/mm3 (150-420); Red Blood Count 4.46 M/mm3 (4.20-5.40); Red Cell Distribution Width 12.2 % (11.6-14.4); White Blood Count 7.2 K/mm3 (4.8-10.8)
[2021-03-07 07:19] LABS: Add Urine Microscopic? YES; Appearance Urine Clear (Clear); Bilirubin Urine Negative (Negative); Blood Urine Negative (Negative); Color Urine Yellow (Yellow); Glucose Urine UA Negative (Negative); Ketones Urine Trace (Negative); Leukocyte Esterase Ur Negative (Negative); Nitrate Urine Negative (Negative); Protein Urine Negative (Negative); Specific Grav Ur >= 1.030 (1.010-1.020); Urobilinogen Urine 0.2 mg/dL (0.2-1.0)
[2021-03-07 07:21] LABS: Bacteria Urine Trace /hpf; RBC Urine None seen /hpf (0-2); Squamous Epithelial Cell Urine Few /hpf (Few); WBC Urine None seen /hpf (0-3)
[2021-03-07 07:25] LABS: Creatinine Urine 297.71 mg/dL (40-278); MALB Creatinine Ratio 5.1 mg/g (0-30); Microalbumin Urine Random 15.3 mg/L
[2021-03-07 08:21] LABS: Anion Gap 6 mmol/L (8-16); Blood Urea Nitrogen 15 mg/dL (7-18); Calcium 8.8 mg/dL (8.5-10.1); Carbon Dioxide 30 mmol/L (21-32); Chloride 105 mmol/L (98-108); Cholesterol 180 mg/dL (0-200); Estimated Glomerular Filt Rate > 60; Glucose 156 mg/dL (70-99); HDL Direct 89 mg/dL (40-60); LDL Cholesterol Calculated 80 mg/dL (<130); Osmolality Calculated 295 mOsm/kg (285-295); Potassium 4.5 mmol/L (3.5-5.1); Sodium 141 mmol/L (136-145); Thyroid Stimulating Hormone 1.32 uIU/mL (0.36-3.74); Triglycerides 57 mg/dL (0-150)
== END 2021-03-07 07:04 | disposition home or self-care (01) ==
LOC: CHSLAB 07:05
PROVIDERS: PCP Family Medicine; Visit Provider Family Medicine
DX: E78.2 Mixed hyperlipidemia (principal); I10 Essential (primary) hypertension
CPT/HCPCS: 36415; 80048; 80061; 81001; 82043; 84443; 85025

== ENCOUNTER 2021-05-30 06:47 | Outpatient (CLI) | payer OTHER, SELFPAY ==
[2021-05-30 07:20] LABS: Basophils Absolute Auto 0.04 K/mm3 (0.00-0.10); Basophils Percent Auto 0.6 % (0.0-1.0); Eosinophils Absolute Auto 0.22 K/mm3 (0.02-0.50); Eosinophils Percent Auto 3.2 % (1.0-6.0); Hematocrit 43.3 % (35.0-49.0); Hemoglobin 14.6 g/dL (12.0-15.0); Immature Granulocyte Absolute 0.02 K/mm3 (0.00-0.00); Immature Granulocyte Percent A 0.3 % (0.0-0.0); Lymphocytes Absolute Auto 1.81 K/mm3 (1.10-4.50); Lymphocytes Percent Auto 26.6 % (18.0-42.0); Mean Corpuscular HGB Conc 33.7 g/dL (32.0-36.0); Mean Corpuscular Hemoglobin 32.4 pg (27.0-31.0); Mean Platelet Volume 10.6 fl (9.2-11.8); Monocytes Absolute Auto 0.53 K/mm3 (0.10-0.90); Monocytes Percent Auto 7.8 % (2.0-11.0); Neutrophils Absolute Auto 4.2 K/mm3 (1.7-7.2); Neutrophils Percent Auto 61.5 % (50.0-70.0); Platelet Count Result 282 K/mm3 (150-420); Red Blood Count 4.51 M/mm3 (4.20-5.40); Red Cell Distribution Width 12.2 % (11.6-14.4); White Blood Count 6.8 K/mm3 (4.8-10.8)
[2021-05-30 09:01] LABS: Alanine Aminotransferase 35 U/L (14-59); Albumin Level 3.5 g/dL (3.4-5.0); Alkaline Phosphatase 76 U/L (46-116); Anion Gap 10 mmol/L (8-16); Aspartate Amino Transferase 17 U/L (15-37); Bilirubin,Total 0.4 mg/dL (0.00-1.00); Carbon Dioxide 26 mmol/L (21-32); Chloride 102 mmol/L (98-108); Potassium 4.5 mmol/L (3.5-5.1); Sodium 138 mmol/L (136-145); Total Protein 6.4 g/dL (6.4-8.2)
[2021-05-30 09:07] LABS: Blood Urea Nitrogen 15 mg/dL (7-18); Calcium 8.7 mg/dL (8.5-10.1); Estimated Glomerular Filt Rate > 60; Glucose 223 mg/dL (70-99); Osmolality Calculated 293 mOsm/kg (285-295)
[2021-06-02 02:35] LABS: Vitamin D 25 Hydroxy 28 ng/mL (30-100)
[2021-06-02 10:02] LABS: Parathyroid Intact 56 pg/mL (14-64)
== END 2021-05-30 06:48 | disposition home or self-care (01) ==
LOC: CHSLAB 06:49
PROVIDERS: PCP Family Medicine; Visit Provider Internal Medicine Endocrinology, Diabetes & Metabolism
DX: M81.0 Age-related osteoporosis without current pathological fracture (principal); I10 Essential (primary) hypertension; E10.9 Type 1 diabetes mellitus without complications
CPT/HCPCS: 36415; 80053; 82306; 83970; 85025

== ENCOUNTER 2021-08-31 07:23 | Emergency (ER) | payer OTHER, SELFPAY ==
--- NOTE | ~2021-08-31 | XR_ITS ---
XR knee RT 3V 08/31/2021 08:09 Indication: Status post fall. Right knee pain. Procedure: 3 views right knee Comparison: 12/20/2018 Findings: No fracture, subluxation or dislocation. Mild osteoarthritis. No significant joint effusion . No foreign bodies. Impression: 1: No acute fracture. Reviewed, dictated and finalized at location B. E TOOLSETTER Impression: 1: No acute fracture.
[2021-08-31 07:40] VITALS: BP 159/80; PULSE 72; RESP 18; TEMP 36.7; O2SAT 97
--- NOTE | 2021-08-31 07:44 | ED.LOWEXIN ---
HPI - Extremity Injury (Lower) General Chief Complaint: Extremity Injury, Lower Stated Complaint: Right knee injury and ankle fell on ice Time Seen by Provider: 08/31/21 07:44 Source: patient, family and RN notes reviewed Mode of arrival: ambulatory ( using crutches) Limitations: no limitations History of Present Illness HPI Narrative: patient slipped on the ice yesterday and said that she basically did the splits twisting her right leg behind her. says that her right knee hurts worse than her right ankle. complaint: knee injury and ankle injury Onset (ago): hour(s) (1) Type of Injury: inversion Place: home Severity: moderate Relieving factors: immobilization Exacerbating factors: weight bearing and movement Context: fall Associated symptoms: swelling and able to partially bear weight Other symptoms: none Treatments prior to arrival: cold therapy and bandage Related Data Home Medications Medication Instructions Recorded Confirmed atorvastatin 20 mg tablet 20 mg PO DAILY 06/21/19 03/23/21 citalopram 40 mg tablet 20 mg PO DAILY 06/21/19 03/23/21 diltiazem HCl 240 mg 240 mg PO DAILY 06/21/19 03/23/21 capsule,extended release 24 hr doxazosin 2 mg tablet 2 mg PO DAILY 06/21/19 03/23/21 furosemide 20 mg tablet 20 mg PO DAILY tablet 06/21/19 03/23/21 cyanocobalamin (vitamin B-12) 1,000 mcg PO DAILY 08/19/20 03/23/21 [Vitamin B-12] multivitamin 1 tablet PO DAILY 08/19/20 03/23/21 apixaban [Eliquis] 5 mg PO BID 08/22/20 03/23/21 Allergies Allergy/AdvReac Type Severity Reaction Status Date / Time Cephalosporins Allergy Mild RASH Verified 08/31/21 07:49 Sulfa (Sulfonamide Allergy Mild Rash Verified 08/31/21 07:49 Antibiotics) cefuroxime Allergy Unknown Rash Verified 08/31/21 07:49 Review of Systems Review of Systems: All systems reviewed & are unremarkable except as noted in HPI and below PMFSH Past Medical History Medical History Arthritis Atrial fibrillation with controlled ventricular rate Depression Diabetic peripheral neuropathy Dyslipidemia Edema of both legs Essential hypertension Lipoma of breast Morbid obesity with BMI of 40.0-44.9, adult JOHANA on CPAP Osteopenia after menopause Osteoporosis Osteoporosis Other and unspecified hyperlipidemia Pure hypercholesterolemia Umbilical hernia Surgical History Surgical History History of colonoscopy History of D&C Family History Family History Father Hypertension Heart disease Mother Hypertension Family history of Parkinson's disease Sibling AVM (arteriovenous malformation) brain Other Diabetes mellitus Family history of congestive heart failure Family history of obesity Social History Social History Smoking status: Never smoker Second hand tobacco smoke exposure: No Alcohol intake: current Drinks per week: 2 Substance use: never Substance use type: does not use Spiritual care concerns: No Exam Const: General: no acute distress and alert Nutritional Appearance: obese morbidly obese Orientation/consciousness: patient oriented x3 HENMT: Head: normal to inspection Ears: external ears normal Eyes: Conjunctivae: conjunctivae normal Pupils: Equal, round and reactive pupils present EOM: EOMs intact bilaterally Neck: Neck: normal visual inspection Resp: Effort & Inspection: normal respiratory effort Auscultation: clear to auscultation bilaterally Cardio: Rate: regular rate Rhythm: abnormal rhythm regularly irregular GI: GI Palp: Yes Soft to palpation Auscultation: normal bowel sounds Back/Spine/Pelvis: Cervical Spine: cervical ROM normal Thoracic/Lumbar Spine: thoraco-lumbar ROM normal Skin: General skin exam: normal color Rashes: no rashes Neuro: General: patient oriented x3, moves all extremi
== END 2021-08-31 08:42 | disposition home or self-care (01) ==
PROVIDERS: Emergency Provider Emergency Medicine; PCP Family Medicine
DX: S83.411A Sprain of medial collateral ligament of right knee, initial encounter (principal); S93.491A Sprain of other ligament of right ankle, initial encounter; W00.0XXA Fall on same level due to ice and snow, initial encounter
CPT/HCPCS: 73562; 99283

== ENCOUNTER 2021-09-07 14:39 | Outpatient (CLI) | payer OTHER, SELFPAY ==
--- NOTE | ~2021-09-07 | MM_ITS ---
EXAMINATION: MM screening [facility] BI w preethi HISTORY: Screening mammogram TECHNIQUE: Craniocaudal and mediolateral oblique 3-D tomosynthesis images were obtained and synthetic 2-D images were generated. CAD analysis was submitted and interpreted. COMPARISON: 06/13/2020, 05/31/2019, 05/11/2018 BREAST PARENCHYMAL COMPOSITION: There are scattered areas of fibroglandular density. FINDINGS: There is no evidence of suspicious mass, calcification, or architectural distortion to sugg est malignancy in either breast. There has been no suspicious interval change. IMPRESSION: 1. No mammographic evidence of malignancy. 2. Recommend routine screening mammography in one year. BI-RADS Category 1: Negative Reviewed, dictated and finalized at location A. LE CRANE OPERATOR
== END 2021-09-07 14:40 | disposition home or self-care (01) ==
LOC: CHSIMG 14:40
PROVIDERS: PCP Family Medicine; Visit Provider Family Medicine
DX: Z12.31 Encounter for screening mammogram for malignant neoplasm of breast (principal)
CPT/HCPCS: 77063; 77067

== ENCOUNTER 2021-09-07 16:18 | Outpatient (RCR) | payer OTHER, SELFPAY ==
--- NOTE | 2021-09-07 17:05 | PTOPEVAL ---
Thank you for referring Tara Agosto to [facility].? The patient is scheduled to be seen for therapy? __3__x/week for 12 visits. Please review, sign, date and return this plan of care ZAHRA. I agree with and certify that the following plan of care is medically necessary. Referring Physician Date Admitting Provider: Attending Provider: Jer Gomez MD Referring Provider: *PT Outpatient Evaluation Start: 09/07/21 16:28 Freq: Status: Active Protocol: Document 09/07/21 16:28 JESUS (Rec: 09/07/21 17:00 JESUS [id number]) Therapy Assessment Status Assessment Status Assessment Status Evaluation Outpatient Past Medical History Neurological History Hx Neurological Disorders No Significant History Cardiovascular History Hx Atrial Fibrillation Yes Hx Hypercholesterolemia Yes Hx Hypertension Yes Respiratory History Hx Sleep Apnea Yes: CPAP Gastrointestinal History Hx Hernia Yes Hx Other Gastrointestinal Disorders Yes: Anal cyst removed. Genitourinary History Hx Genitourinary Disorders No Significant History Musculoskeletal History Hx Arthritis Yes Hx Osteoporosis Yes Hematological History Hx Hematological Disorders No Significant History Endocrine History Hx Diabetes Yes: Type 1, INSULIN PUMP HEENT History Hx Cataracts Yes Integumentary History Hx Skin Disorders No Significant History Reproductive History Hx Post Menopausal Yes Psychosocial History Hx Psychiatric Disorders No Significant History Pain History History of Any Previous or Ongoing No Significant History Instance of Pain Anesthesia History Hx Anesthesia Reactions No Significant History Evaluation Information Problem Diagnosis right knee pain Onset 08/30/21 Subjective Information Pt. reports she slipped on ice Query Text:As Reported By Patient/ on 08/30/21 landing directly Family on the right knee. She reports that she noticed increased pain on Tuesday morning. She reports that xray were performed with no findings. She reports she was off work last week due to pain and was icing and elevating the l.e. She reports that her pain has improved, but is still present and the knee is stiff. Pt. reports that her goal is to reduce her pain a
--- NOTE | 2021-09-30 08:45 | PTOPEVAL ---
Thank you for referring Tara Agosto to [facility].? The patient is scheduled to be seen for therapy? ____x/week for ___ weeks. Please review, sign, date and return this plan of care ZAHRA. I agree with and certify that the following plan of care is medically necessary. Referring Physician Date Admitting Provider: Attending Provider: Jer Gomez MD Referring Provider: *PT Outpatient Evaluation Start: 09/07/21 16:28 Freq: Status: Active Protocol: Document 09/30/21 08:04 Reyna (Rec: 09/30/21 08:44 [facility] [id number]) Therapy Assessment Status Assessment Status Assessment Status Discharge Outpatient Past Medical History Neurological History Hx Neurological Disorders No Significant History Cardiovascular History Hx Atrial Fibrillation Yes Hx Hypercholesterolemia Yes Hx Hypertension Yes Respiratory History Hx Sleep Apnea Yes: CPAP Gastrointestinal History Hx Hernia Yes Hx Other Gastrointestinal Disorders Yes: Anal cyst removed. Genitourinary History Hx Genitourinary Disorders No Significant History Musculoskeletal History Hx Arthritis Yes Hx Osteoporosis Yes Hematological History Hx Hematological Disorders No Significant History Endocrine History Hx Diabetes Yes: Type 1, INSULIN PUMP HEENT History Hx Cataracts Yes Integumentary History Hx Skin Disorders No Significant History Reproductive History Hx Post Menopausal Yes Psychosocial History Hx Psychiatric Disorders No Significant History Pain History History of Any Previous or Ongoing No Significant History Instance of Pain Anesthesia History Hx Anesthesia Reactions No Significant History Evaluation Information Problem Diagnosis right knee pain Onset 08/30/21 Additional Evaluation Detail LEFS = 32% functionally declined Subjective Information patient reports she feels Query Text:As Reported By Patient/ great this date. she reports Family no more than 1/10 pain in the R knee. she reports she is not limited in any of her normal daily activities any longer. Pain Assessment Timing of Pain Assessment Timing of Pain Assessment Assessment Pain Scale Pain Scale Used Numeric (1 - 10) Self Report Pain Assessment Right Knee(s) Reported Pain Level 1 Pain Description Aching Pain Score Pain Score 1: Self Report Interventions Used Interventions Used By Clinicians Activity or ADL's,Education, Electrical Stimulation,
== END 2021-09-30 10:23 | disposition home or self-care (01) ==
LOC: CHSPT 16:18
PROVIDERS: PCP Family Medicine; Visit Provider Family Medicine
DX: M25.561 Pain in right knee (principal)
CPT/HCPCS: 97014; 97110; 97112; 97161; 97530; G0283

== ENCOUNTER 2021-10-03 07:11 | Outpatient (CLI) | payer OTHER, SELFPAY ==
[2021-10-03 07:45] LABS: Creatinine Urine 116.82 mg/dL (40-278); MALB Creatinine Ratio 11.1 mg/g (0-30); Microalbumin Urine Random < 13.0 mg/L
[2021-10-03 08:02] LABS: Anion Gap 10 mmol/L (8-16); Blood Urea Nitrogen 17 mg/dL (7-18); Calcium 8.9 mg/dL (8.5-10.1); Carbon Dioxide 27 mmol/L (21-32); Chloride 103 mmol/L (98-108); Cholesterol 194 mg/dL (0-200); Estimated Glomerular Filt Rate > 60; Glucose 137 mg/dL (70-99); HDL Direct 95 mg/dL (40-60); LDL Cholesterol Calculated 87 mg/dL (<130); Osmolality Calculated 293 mOsm/kg (285-295); Potassium 4.2 mmol/L (3.5-5.1); Sodium 140 mmol/L (136-145); Thyroid Stimulating Hormone 1.24 uIU/mL (0.36-3.74); Triglycerides 59 mg/dL (0-150)
[2021-10-06 20:13] LABS: Vitamin D 25 Hydroxy 44 ng/mL (30-100)
== END 2021-10-03 07:12 | disposition home or self-care (01) ==
LOC: CHSLAB 07:13
PROVIDERS: PCP Family Medicine; Visit Provider Internal Medicine Endocrinology, Diabetes & Metabolism
DX: E10.9 Type 1 diabetes mellitus without complications (principal); M81.0 Age-related osteoporosis without current pathological fracture
CPT/HCPCS: 36415; 80048; 80061; 82043; 82306; 84443

== ENCOUNTER 2022-06-21 13:13 | Outpatient (CLI) | payer MEDICARE, SELFPAY ==
--- NOTE | ~2022-06-21 | DEXA_ITS ---
Bone Density Report Name: RENETTA ESPINOSA Age: 67 Sex: Female Ethnicity: White Date of : 1955 Indication: postmenopausal; screening for osteoporosis; height loss; Referring Provider: An Cabral Study: Bone densitometry was performed. Exam Date: June 21, 2022 Accession number: [id number] Bone Density: Region BMD T-score Z-score Classification AP Spine(L1, L2, L3) 1.193 1.6 3.3 Normal Femoral Neck (Left) 0.631 -2.0 -0.4 Osteopenia Total Hip (Left) 0.951 0.1 1.3 Normal Femoral Neck (Right) 0.689 -1.4 0.1 Osteopenia Total Hip (Right) 0.937 0.0 1.2 Normal Femoral Neck Mean 0.660 -1.7 -0.2 Osteopenia Total Hip Mean 0.944 0.0 1.3 Normal World Health Organization criteria for BMD impression classify patients as: Normal (T-score at or above -1.0), Osteopenia (T-score between -1.0 and -2.5), or Osteoporosis (T-score at or below -2.5). 10-year Fracture Risk(1): Major Osteoporotic Fracture 8.9% Hip Fracture 1.2% Reported Risk Factors: [place] (), Neck BMD=0.631, BMI=42.9 (1) FRAX(R) Version 3.08. Fracture probability calculated for an untreated patient. Fracture probability may be lower if the patient has received treatment. Clinical Information Provided by Patient: Has used the following medications: Actonel (i.e. risedronate), Vitamin D Patient maximum height was 67 Menopause Age: 47 No regular weight bearing exercise Drinks caffeinated beverages Onset of menses at age 16 Number of children 0 Impression: The patient has low bone mass, based on the Left Femoral Neck T-score. Discussion: BONE DENSITY IS LOW AT ONE OR MORE SKELETAL SITES. This patient's lowest T-score is low at one or more skeletal sites. It meets the World Health Organization's (WHO) criteria for ?low bone mass? (T-score between -1.0 and -2.5). The patient's 10-year risk of fracture as calculated by FRAX is less than the threshold where pharmacological therapy is recommended by the National Osteoporosis Foundation (NOF). However, all treatment decisions require clinical judgment and consideration of individual patient factors, including patient preferences, comorbidities, previous drug use, risk factors not captured in the FRAX model (e.g., frailty, falls, vitamin D deficiency, increased bone turnover, interval significant decline in bone density) and possible under or overestimation of fracture risk by FRAX. The patient should follow a healthful lifestyle (good nutrition with adequate calcium and vitamin D, and appropriate weight-bearing exercise). Follow-Up: Consider repeating this study in 2 to 3 years to reassess this patient's status, or sooner if there is some new clinical indication. Reported by: Dr. Gautam Schwartz on 06/21/2022 1:46:00 PM.
== END 2022-06-21 13:14 | disposition home or self-care (01) ==
LOC: CHSIMG 13:16
PROVIDERS: PCP Family Medicine; Visit Provider Student in an Organized Health Care Education/Training Program
DX: Z78.0 Asymptomatic menopausal state (principal)
CPT/HCPCS: 77080

== ENCOUNTER 2022-08-25 07:11 | Outpatient (CLI) | payer MEDICARE, SELFPAY ==
[2022-08-25 07:26] LABS: Hematocrit 40.9 % (35.0-42.0); Hemoglobin 13.6 g/dL (11.7-13.8); Mean Corpuscular HGB Conc 33.3 g/dL (32.0-36.0); Mean Corpuscular Hemoglobin 32.3 pg (27.0-31.0); Mean Corpuscular Volume 97.1 fL (78.0-102.0); Mean Platelet Volume 9.8 fl (9.2-11.8); Platelet Count Result 255 K/mm3 (150-420); Red Blood Count 4.21 M/mm3 (4.20-5.40); Red Cell Distribution Width 12.5 % (11.6-14.4); White Blood Count 5.7 K/mm3 (4.8-10.8)
[2022-08-25 08:38] LABS: Alanine Aminotransferase 32 U/L (14-59); Albumin Level 3.6 g/dL (3.4-5.0); Alkaline Phosphatase 66 U/L (46-116); Anion Gap 5 mmol/L (8-16); Aspartate Amino Transferase 18 U/L (15-37); Bilirubin,Total 0.4 mg/dL (0.00-1.00); Blood Urea Nitrogen 22 mg/dL (7-18); Calcium 8.6 mg/dL (8.5-10.1); Carbon Dioxide 31 mmol/L (21-32); Chloride 100 mmol/L (98-108); Cholesterol 214 mg/dL (0-200); Estimated Glomerular Filt Rate > 60; Free T4 Free Thyroxine 0.94 ng/dL (0.76-1.46); Glucose 131 mg/dL (70-99); HDL Direct 103 mg/dL (40-60); LDL Cholesterol Calculated 104 mg/dL (<130); Osmolality Calculated 287 mOsm/kg (285-295); Potassium 3.7 mmol/L (3.5-5.1); Sodium 136 mmol/L (136-145); Thyroid Stimulating Hormone 1.38 uIU/mL (0.36-3.74); Total Protein 6.4 g/dL (6.4-8.2); Triglycerides 36 mg/dL (0-150); Vitamin B12 1451 pg/mL (193-986)
[2022-08-25 09:24] LABS: MALB Creatinine Ratio 6.6 mg/g (0-30); Microalbumin Urine Random < 13.0 mg/L
[2022-08-29 11:00] LABS: Vitamin D 25 Hydroxy 50 ng/mL (30-100)
== END 2022-08-25 07:12 | disposition home or self-care (01) ==
LOC: CHSLAB 07:12
PROVIDERS: PCP Family Medicine; Visit Provider Nurse Practitioner Family
DX: I10 Essential (primary) hypertension (principal); E78.5 Hyperlipidemia, unspecified; E10.65 Type 1 diabetes mellitus with hyperglycemia; E11.9 Type 2 diabetes mellitus without complications; M81.0 Age-related osteoporosis without current pathological fracture
CPT/HCPCS: 36415; 80053; 80061; 82043; 82306; 82607; 84439; 84443; 85027

== ENCOUNTER 2022-09-06 14:20 | Outpatient (CLI) | payer MEDICARE, SELFPAY ==
--- NOTE | 2022-10-07 12:04 | WPDHOLTEREM ---
Holter/Event Monitor Holter/Event Monitor Date of procedure: 10/07/22 Holter/Event Procedure: Event Monitor Diagnosis: Atrial fibrillation Conclusion: 1. 28 days event monitor between 09/06/22-10/05/22. There are 57 available transmissions for analysis. 2. Predominant rhythm is atrial flutter. HR range 43-138 bpm; average HR 67 bpm. 3. There are occasional premature supraventricular complexes with total burden of 1%. There are 3,762 episodes of atrial fibrillation with burden of 51%; HR range 43-138 bpm and longest lasting 4 hours and 39 minutes. 4. There are occasional premature ventricular complexes with total burden of 2%. No ventricular tachycardia. 5. There is one pause greater than 2 seconds in atrial flutter with 2.2 seconds on 09/09/22 at 00:26. 6. Patient reports 6 episodes of symptoms of shortness of breath, lightheadedness and symptoms other than listed which demonstrate 2 episodes with sinus rhythm with HR range 62-72 bpm and 1 PAC, and atrial flutter with HR range 60-107 bpm.
== END 2022-09-06 14:21 | disposition home or self-care (01) ==
LOC: CHSCARD 14:21
PROVIDERS: PCP Family Medicine; Visit Provider Internal Medicine Cardiovascular Disease
DX: I48.91 Unspecified atrial fibrillation (principal)
CPT/HCPCS: 93270

== ENCOUNTER 2022-10-08 07:53 | Outpatient (CLI) | payer MEDICARE, SELFPAY ==
--- NOTE | ~2022-10-08 | MM_ITS ---
EXAMINATION: MM screening [facility] BI w preethi HISTORY: Screening TECHNIQUE: Craniocaudal and mediolateral oblique 3-D tomosynthesis images were obtained and synthetic 2-D images were generated. CAD analysis was submitted and interpreted. COMPARISON: Comparison to multiple prior studies sequentially, with oldest reviewed study dated 07/2017. BREAST PARENCHYMAL COMPOSITION: There are scattered areas of fibroglandular density. FINDINGS: There is no evidence of suspicious mass, calcification, or architectural distortion to sugg est malignancy in either breast. There has been no suspicious interval change. IMPRESSION: 1. No mammographic evidence of malignancy. 2. Recommend routine screening mammography in one year. BI-RADS Category 1: Negative Reviewed, dictated and finalized at location A.
== END 2022-10-08 07:54 | disposition home or self-care (01) ==
LOC: CHSIMG 07:55
PROVIDERS: PCP Family Medicine; Visit Provider Family Medicine
DX: Z12.31 Encounter for screening mammogram for malignant neoplasm of breast (principal)
CPT/HCPCS: 77063; 77067

== ENCOUNTER 2022-11-18 13:43 | Outpatient (CLI) | payer MEDICARE, SELFPAY ==
[2022-11-18 14:16] LABS: Anion Gap 6 mmol/L (8-16); Blood Urea Nitrogen 19 mg/dL (7-18); Calcium 8.8 mg/dL (8.5-10.1); Carbon Dioxide 32 mmol/L (21-32); Chloride 101 mmol/L (98-108); Estimated Glomerular Filt Rate 51; Glucose 165 mg/dL (70-99); Osmolality Calculated 294 mOsm/kg (285-295); Potassium 3.8 mmol/L (3.5-5.1); Sodium 139 mmol/L (136-145)
== END 2022-11-18 13:44 | disposition home or self-care (01) ==
LOC: CHSLAB 13:46
PROVIDERS: PCP Family Medicine
DX: Z79.899 Other long term (current) drug therapy (principal)
CPT/HCPCS: 36415; 80048

== ENCOUNTER 2022-12-14 09:17 | Outpatient (CLI) | payer MEDICARE, SELFPAY ==
--- NOTE | 2022-12-14 09:25 | ECG_ITS ---
Measurements Intervals [place] Rate: 65 P: 25 [place]: 201 QRS: 27 QRSD: 130 T: 56 QT: 358 QTc: 372 Interpretive Statements SINUS RHYTHM MODERATE INTRAVENTRICULAR CONDUCTION DELAY [105+ ms QRS DURATION, 80+ ms Q/S IN V1/V2, NO Q AND 60+ ms R IN I/aVL/V5/V6] NONSPECIFIC ST AND T-WAVE ABNORMALITY ABNORMAL ECG COMPARED TO ECG 08/19/2020 15:37:06 SINUS RHYTHM NOW PRESENT T-WAVE ABNORMALITY NOW PRESENT Electronically Signed On 12-14-2022 15:08:20 CDT by Khurram Santana M.D.
== END 2022-12-14 09:18 | disposition home or self-care (01) ==
LOC: CHSCARD 09:20
PROVIDERS: PCP Family Medicine; Visit Provider Internal Medicine Cardiovascular Disease
DX: I48.92 Unspecified atrial flutter (principal); R94.31 Abnormal electrocardiogram [ECG] [EKG]
CPT/HCPCS: 93005

== ENCOUNTER 2023-01-03 11:09 | Outpatient (CLI) | payer MEDICARE, SELFPAY ==
--- NOTE | 2023-01-03 11:14 | EST_ITS ---
Patient Info Name: Tara Agosto Age: 67 years : 1955 Gender: Female Ht: 65 in Wt: 252 lbs BSA: 2.35 m2 Exam Date: 01/03/2023 12:15 PM Exam Location: [facility] Patient Status: Outpatient Admit Date: 01/03/2023 Staff Ordering Physician: Chidi Worthy DO Attending Provider: Chidi Worthy DO Exam Type: CA stress margie w NM Summary 1. 1. Negative lexiscan stress test for ischemic ST changes by ECG criteria. 2. 2. Baseline hypertension. 3. 3. Nuclear scan to follow and will be reported separately. Please correlate with it. 4. 4. Patient informed of the above results. Protocol: LEXISCAN Stress ECG Details Stage: REST Duration (min): 1 min : 43 sec HR (bpm): 60 SBP (mmHg): 151 DBP (mmHg): 75 Stage: REST Duration (min): 23 min : 54 sec HR (bpm): --- SBP (mmHg): 151 DBP (mmHg): 75 Stage: STAGE 1 Duration (min): 0 min : 18 sec HR (bpm): 59 SBP (mmHg): 151 DBP (mmHg): 75 Stage: RECOVERY Duration (min): 0 min : 41 sec HR (bpm): 73 SBP (mmHg): 151 DBP (mmHg): 75 Stage: RECOVERY Duration (min): 1 min : 41 sec HR (bpm): 71 SBP (mmHg): 151 DBP (mmHg): 75 Stage: RECOVERY Duration (min): 2 min : 41 sec HR (bpm): 70 SBP (mmHg): 141 DBP (mmHg): 67 Stage: RECOVERY Duration (min): 3 min : 41 sec HR (bpm): 70 SBP (mmHg): 134 DBP (mmHg): 68 Stage: RECOVERY Duration (min): 4 min : 41 sec HR (bpm): 69 SBP (mmHg): 134 DBP (mmHg): 68 Stage: RECOVERY Duration (min): 5 min : 41 sec HR (bpm): 69 SBP (mmHg): 136 DBP (mmHg): 71 Stage: RECOVERY Duration (min): 6 min : 2 sec HR (bpm): 69 SBP (mmHg): 136 DBP (mmHg): 71 Rest HR: 58 bpm Peak HR: 74 bpm Rest Sys BP: 151 mmHg Peak Sys BP: 141 mmHg Max Pred HR: 155 bpm % Max Pred HR: 48 % Target HR: 132 bpm Max RPP: 10,434 bpm*mmHg Termination Reason: Completed protocol Cardiac Symptoms: Shortness of breath Total Time: 0 min : 18 sec Rest Mason BP: 75 mmHg Peak Mason BP: 67 mmHg Total Dose: 0.4 mg Resting ECG Sinus bradycardia, first degree AV block, IVCD, delayed precordial R/S transition. Stress ECG No ST changes. Arrhythmias None. Report Signatures
--- NOTE | 2023-01-03 17:05 | WPDCARIOSTRE ---
Nuclear Stress Test INDICATIONS Indications: Chest pain PROCEDURE Procedure Performed: Myocardial Perf Spect-Multi Procedure: Patient underwent a lexiscan stress test and immediately was injected with 33.4 mCi of cardiolyte. Multiple tomographic images were obtained. These are of good quality. There is moderate size, moderate severity anterior perfusion defect and a moderate size, severe apical perfusion defect with stress imaging. A separate resting images were obtain after patient was injected with 10.5 mCi of cardiolyte. Multiple tomographic images were obtained. These are of good quality. There moderate size, severe apical perfusion defect with rest imaging. CONCLUSION Conclusion: 1. Abnormal myocardial perfusion imaging demonstrating moderate size anterior perfusion defect suggestive of reversible ischemia. In addition, there is fixed apical defect suggestive of attentuation artifact. 2. Left ventriculogram demonstrates normal measured ejection fraction of 77% with no wall motion abnormalities. 3. TID score 1.05 is normal.
== END 2023-01-03 11:10 | disposition home or self-care (01) ==
LOC: CHSIMG 11:11
PROVIDERS: PCP Family Medicine; Visit Provider Internal Medicine Cardiovascular Disease
DX: R07.9 Chest pain, unspecified (principal); R94.31 Abnormal electrocardiogram [ECG] [EKG]
CPT/HCPCS: 78452; 93017; A9502; J2785

== ENCOUNTER 2023-01-19 01:17 | Day surgery (SDC) | payer MEDICARE, SELFPAY ==
[2023-01-18 17:13] VITALS: BMI 41.6
[2023-01-19] VITALS (11 sets, daily range): BP systolic 103–153; BP diastolic 64–108; PULSE 80–96; RESP 14–20; TEMP 36.4; O2SAT 96–99; BMI 40.7
[2023-01-19 11:34] LABS: Basophils Absolute Auto 0.1 K/mm3 (0.0-0.1); Basophils Percent Auto 0.6 % (0.2-1.2); Eosinophils Absolute Auto 0.2 K/mm3 (0-0.3); Eosinophils Percent Auto 1.9 % (0-4.4); Hematocrit 42.7 % (37.0-47.0); Hemoglobin 14.6 g/dL (12.0-15.0); Immature Granulocyte Absolute 0.02 K/mm3 (0.00-0.031); Immature Granulocyte Percent A 0.3 % (0-0.5); Lymphocytes Absolute Auto 1.88 K/mm3 (0.9-3.2); Mean Corpuscular HGB Conc 34.2 g/dl (32-36); Mean Corpuscular Hemoglobin 32.3 pg (26-34); Mean Corpuscular Volume 94.5 fl (80-100); Mean Platelet Volume 9.8 fl (7.4-10.4); Monocytes Absolute Auto 0.7 K/mm3 (0.1-0.6); Neutrophils Percent Auto 64.2 % (45.5-73.1); Platelet Count Result 305 k/mm3 (150-375); Red Blood Count 4.52 M/mm3 (4.2-5.4); Red Cell Distribution Width 12.4 % (11.5-14.5); White Blood Count 7.8 K/mm3 (4.5-10.0)
[2023-01-19 11:39] LABS: Anion Gap 3 mmol/L (8-16); Blood Urea Nitrogen 15 mg/dL (7-17); Calcium 9.3 mg/dL (8.4-10.2); Carbon Dioxide 30 mmol/L (22-30); Chloride 98 mmol/L (98-107); Estimated CRCL calculation 86 ml/min; Estimated Glomerular Filt Rate > 60; Glucose 129 mg/dL (65-110); Potassium 4.1 mmol/L (3.4-5.0); Sodium 131 mmol/L (137-145)
--- NOTE | 2023-01-19 14:07 | WPDHPUPDATE1 ---
History and Physical Update Update Date/Time: 01/19/23 14:07 History and Physical has been reviewed, including an updated exam of the patient. There are NO changes in the patient's condition. Risks, benefits, and alternatives have been discussed and questions answered. Patient agrees to proceed with procedure.
--- NOTE | 2023-01-19 14:07 | WPDMODSED ---
Moderate Sedation Note-Pt Data Patient Data Diagnosis: Abnormal stress test Present Complaint: Abnormal stress test Procedure to be performed/Plan: Coronary angiography, left heart cath, +/- percutaneous coronary intervention Allergies Allergy/AdvReac Type Severity Reaction Status Date / Time Cephalosporins Allergy Mild RASH Verified 01/19/23 11:16 Sulfa (Sulfonamide Allergy Mild Rash Verified 01/19/23 11:16 Antibiotics) cefuroxime Allergy Unknown Rash Verified 01/19/23 11:16 Home Medications Medication Instructions Recorded Confirmed Type citalopram 40 mg tablet 40 mg PO DAILY 06/21/19 01/19/23 History doxazosin 2 mg tablet 2 mg PO DAILY 06/21/19 01/19/23 History multivitamin 1 tablet PO DAILY 08/19/20 01/18/23 History apixaban 5 mg tablet (Eliquis) 5 mg PO BID 08/22/20 01/18/23 History risedronate 35 mg tablet 35 mg PO WEEKLY #12 tabs 06/28/22 01/18/23 Rx insulin aspart U-100 100 unit/mL 80 unit (0.8 mL) subcut DAILY 90 08/24/22 01/18/23 Rx subcutaneous solution (Novolog days #80 mL U-100 Insulin aspart) oxybutynin chloride 10 mg 10 mg PO HS 08/24/22 01/18/23 History tablet,extended release 24 hr atorvastatin 40 mg tablet 40 mg PO QHS #90 tabs 09/23/22 01/18/23 Rx cyanocobalamin (vitamin B-12) 1,000 mcg PO 3XW 11/25/22 01/18/23 History 1,000 mcg tablet (Vitamin B-12) flecainide 50 mg tablet 50 mg PO BID 11/25/22 01/19/23 History glucagon 1 mg/0.2 mL subcutaneous 1 mg subcut ONCE PRN Hypoglycemia 11/25/22 01/18/23 History auto-injector ([employer] HypoPen 2-Pack) aspirin 81 mg tablet,delayed 81 mg PO DAILY 01/10/23 01/19/23 History release cholecalciferol (vitamin D3) 25 25 mcg PO HS 01/18/23 01/18/23 History mcg (1,000 unit) capsule diltiazem HCl 120 mg 120 mg PO BID 01/18/23 01/19/23 History capsule,extended release 12 hr hydrochlorothiazide 25 mg tablet 25 mg PO BID 01/18/23 01/18/23 History losartan 100 mg tablet 100 mg PO DAILY 01/18/23 01/19/23 History nortriptyline 25 mg capsule 25 mg PO HS 01/18/23 01/18/23 History Current Medications: Active Medications Sodium Chloride (Normal Saline Iv) 500 mls @ 100 mls/hr IV CONT .Q5H CAMRYN Sodium Chloride (Normal Saline Iv) 1,000 mls @ 125 mls/hr IV CONT .Q8H ONE Stop: 01/19/23 22:05 Sedation/Anesthesia: No previous sedation/anesthesia problems (including family history). [facility] Past Medical History Medical History Arthritis Atrial fibrillation with controlled ventricular rate Body mass index (BMI) 35 or more (10/26/18) Depression Diabetic peripheral neuropathy Dyslipidemia Edema of both legs Essential hypertension Hyperlipidemia due to type 1 diabetes mellitus Lipoma of breast Morbid obesity with BMI of 40.0-44.9, adult JOHANA on CPAP Osteopenia after menopause Osteoporosis Other and unspecified hyperlipidemia Post-menopausal Postmenopausal bleeding Pure hypercholesterolemia Thickened endometrium Type 1 diabetes mellitus with hyperglycemia Umbilical hernia Surgical History Surgical History History of D&C Family History Family History Father Hypertension Heart disease Mother Hypertension Family history of Parkinson's disease Sibling AVM (arteriovenous malformation) brain Other Diabetes mellitus Family history of congestive heart failure Family history of obesity Social History Social History Smoking packs per day: 0 Smoking cigarettes per day: 0.0 Years smoked: 0 Smoking pack-years: 0.00 Smoking status: Never smoker Second hand tobacco smoke exposure: No Alcohol intake: current Drinks per week: 1 Alcohol use details: socially Substance use: never Substance use type: does not use Living arrangements: alone Spiritual care concerns: No Mod Sed Physical Exam Physica
--- NOTE | 2023-01-19 14:09 | WPDCARDPROC ---
Cardiac Cath Procedure Note Date of procedure:: 01/19/23 Performing physician:: CATHETERIZATION LABORATORY REPORT Procedure Date: 01/19/2023 Commutator Presser: Stephanie Hong M.D., [facility]? Referring Physician: Dr. Chidi Worthy ? Anesthesia: Versed and Fentanyl were ordered and given in my presence at 13:30, procedure ended at 13:52. Supervision of nurse monitored moderate sedation with Versed and Fentanyl was provided for 22 minutes. Total of Versed 2mg and Fentanyl 50mcg were administered by the Cheese Packer RN Marge Allen. Pre-op Diagnosis: Coronary artery disease Post-op Diagnosis: 1. Non-obstructive coronary artery disease 2. Left ventricular end-diastolic pressure of 15mmHg Procedure(s): Left heart catheterization with coronary angiography Access Site: Right radial artery Brief History and Clinical Indications: Patient is a 67 year old female who is referred for [facility] for chest pain in the setting of abnormal stress test. All risks, benefits and alternatives to left heart catheterization with or without percutaneous coronary intervention was discussed at length with the patient. Risk of complications including but not limited to bleeding, infection, arrhythmia, stroke, worsening kidney function, blood loss, groin hematoma, limb loss, emergency coronary artery bypass grafting, and even were discussed with the patient and all questions were answered. The patient understood and wished to proceed. Time out called, patient name, date of , medical record number, allergies, procedure performed, identify Commutator Presser, patient and staff member concurred with accurate data, procedure carried on. Findings: LEFT HEART CATHETERIZATION FINDINGS: 1. Left main: Large caliber vessel. The left main coronary artery is widely patent without any significant obstructive disease. 2. Left anterior descending: Large caliber vessel. The LAD and the diagonal branches have mild luminal irregularities without any significant obstructive angiographic disease. 3. Left circumflex: Large caliber vessel. The left circumflex artery and the main marginal branches have mild luminal irregularities without any significant obstructive angiographic disease. 4. Right coronary artery: Large caliber vessel. The RCA is the dominant vessel. The mid portion has a mild 40-50% focal stenosis. Remainder of the RCA has mild luminal irregularities. The RCA is the dominant vessel. 5. Left ventricle: A. End-diastolic pressure 15 mmHg. B. LV gram deferred. C. No significant gradient across aortic valve on catheter pullback. Description of Procedure: Informed consent signed and placed in the chart. Patient transferred to distillery laborer room. Prepped and draped in usual sterile fashion. 2% lidocaine injected subcutaneously in right wrist area. 22-gauge venipuncture catheter used to access the right radial artery with the Seldinger technique. 6-FR slender sheath placed in right radial artery. Nitroglycerine and Verapamil were given intraarterial through the sheath. Versacore wire advanced under fluoroscopy 5F Tig 4 diagnostic catheter engaged Left Main Coronary Artery. 5F Tig 4 diagnostic catheter engaged Right Coronary Artery Multiple orthogonal angiogram obtained and reviewed 5F Tig 4 diagnostic catheter crossed aortic valve to obtain LVEDP, LV angiogram deferred. Hemostasis was achieved by application of TR band. ? Assessment: 1. Non-obstructive coronary artery disease 2. Left ventricular end-diastolic pressure of 15mmHg Post Operative Condition: Stable No significant blood loss Disposition: Home Plan: The patient will be monitored in the recovery area. Discharge home after post-cath bed rest is completed. The above findings were discussed with the referring physician. Continue aggressive medical therapy and risk factor modification. ? Stephanie Hong M.D. Interventional Cardiology
== END 2023-01-19 17:05 | disposition home or self-care (01) ==
PROVIDERS: Absent Provider Internal Medicine; PCP Family Medicine; Visit Provider Student in an Organized Health Care Education/Training Program
PROC: 4A023N7 Measurement of Cardiac Sampling and Pressure, Left Heart, Percutaneous Approach (ICD-10-PCS; CPT 93452; principal; 2023-01-19 13:00)
DX: I25.10 Atherosclerotic heart disease of native coronary artery without angina pectoris (principal); R94.39 Abnormal result of other cardiovascular function study; R07.9 Chest pain, unspecified; I48.91 Unspecified atrial fibrillation; E10.42 Type 1 diabetes mellitus with diabetic polyneuropathy; R60.0 Localized edema; I48.92 Unspecified atrial flutter; I10 Essential (primary) hypertension; G47.33 Obstructive sleep apnea (adult) (pediatric); M81.0 Age-related osteoporosis without current pathological fracture; E78.00 Pure hypercholesterolemia, unspecified; F32.A Depression, unspecified; E66.01 Morbid (severe) obesity due to excess calories; Z68.41 Body mass index [BMI] 40.0-44.9, adult; Z79.4 Long term (current) use of insulin; Z79.01 Long term (current) use of anticoagulants; Z79.82 Long term (current) use of aspirin
CPT/HCPCS: 36415; 80048; 85025; 93458; A9270; C1769; C1887; C1894; J1644; J2250; J2305; J3010; J7040

== ENCOUNTER 2023-03-26 07:40 | Outpatient (CLI) | payer MEDICARE, SELFPAY ==
[2023-03-26 08:20] LABS: Creatinine Urine 145.75 mg/dL (40-278); MALB Creatinine Ratio 56.5 mg/g (0-30); Microalbumin Urine Random 82.4 mg/L
[2023-03-26 08:53] LABS: Cholesterol 217 mg/dL (0-200); Thyroid Stimulating Hormone 1.12 uIU/mL (0.36-3.74); Triglycerides 42 mg/dL (0-150); Vitamin B12 1717 pg/mL (193-986)
[2023-03-26 09:05] LABS: HDL Direct 100 mg/dL (40-60); LDL Cholesterol Calculated 109 mg/dL (<130)
[2023-03-31 12:33] LABS: Vitamin D 25 Hydroxy 42 ng/mL (30-100)
== END 2023-03-26 07:41 | disposition home or self-care (01) ==
LOC: CHSLAB 07:41
PROVIDERS: PCP Family Medicine; Visit Provider Internal Medicine Endocrinology, Diabetes & Metabolism
DX: R79.89 Other specified abnormal findings of blood chemistry (principal); E78.5 Hyperlipidemia, unspecified; E55.9 Vitamin D deficiency, unspecified
CPT/HCPCS: 36415; 80061; 82043; 82306; 82607; 84443

== ENCOUNTER 2023-06-14 16:51 | Outpatient (CLI) | payer MEDICARE, SELFPAY ==
[2023-06-14 17:38] LABS: SARS-CoV-2 RNA PCR Positive (Negative)
== END 2023-06-14 16:52 | disposition home or self-care (01) ==
PROVIDERS: PCP Family Medicine; Visit Provider Family Medicine
DX: U07.1 COVID-19 (principal); J02.9 Acute pharyngitis, unspecified
CPT/HCPCS: 87635

== ENCOUNTER 2023-10-07 07:12 | Outpatient (CLI) | payer MEDICARE, SELFPAY ==
[2023-10-07 08:18] LABS: Creatinine Urine 211.52 mg/dL (40-278); MALB Creatinine Ratio 46.4 mg/g (0-30); Microalbumin Urine Random 98.2 mg/L
== END 2023-10-07 07:13 | disposition home or self-care (01) ==
LOC: CHSLAB 07:14
PROVIDERS: PCP Family Medicine; Visit Provider Nurse Practitioner Family
DX: E10.9 Type 1 diabetes mellitus without complications (principal)
CPT/HCPCS: 82043

== ENCOUNTER 2023-10-11 12:09 | Outpatient (CLI) | payer MEDICARE, SELFPAY ==
--- NOTE | ~2023-10-11 | MM_ITS ---
EXAMINATION: MM screening priti BI w preethi HISTORY: Screening TECHNIQUE: Craniocaudal and mediolateral oblique 3-D tomosynthesis images were obtained and synthetic 2-D images were generated. CAD analysis was submitted and interpreted. COMPARISON: Comparison to multiple prior studies sequentially, with oldest reviewed study dated 09/07. BREAST PARENCHYMAL COMPOSITION: Not dense: There are scattered areas of fibroglandular density. FINDINGS: There is no evidence of suspicious mass, calcification, or architectural distortion to sugg est malignancy in either breast. There has been no suspicious interval change. IMPRESSION: 1. No mammographic evidence of malignancy. 2. Recommend routine screening mammography in one year. BI-RADS Category 1: Negative Reviewed, dictated and finalized at location A.
== END 2023-10-11 12:10 | disposition home or self-care (01) ==
LOC: CHSIMG 12:11
PROVIDERS: PCP Family Medicine; Visit Provider Family Medicine
DX: Z12.31 Encounter for screening mammogram for malignant neoplasm of breast (principal)
CPT/HCPCS: 77063; 77067

== ENCOUNTER 2024-01-10 10:24 | Outpatient (CLI) | payer MEDICARE, SELFPAY ==
--- NOTE | ~2024-01-10 | XR_ITS ---
Lumbosacral Spine: AP and lateral views Clinical History: Pain, radiculopathy Findings: The normal lordotic curve is maintained. There is mild levoscoliosis. There are probable bi lateral L5 pars interarticularis defects, with 17 mm anterolisthesis of L5 over S1. There is 5 mm ret rolisthesis of L4 over L5. There is severe degenerative disc narrowing at L3-L4, L4-L5, and L5-S1. Th ere is severe facet arthropathy from L3 through S1. The sacroiliac joints are normally outlined. Impression: Probable bilateral L5 pars interarticularis defects, with 17 mm anterolisthesis of L5 over S1. 5 mm retrolisthesis of L4 over L5. Severe degenerative spondylosis from L3 through S1, as detailed above. Reviewed, dictated and finalized at [facility]. Impression: Probable bilateral L5 pars interarticularis defects, with 17 mm anterolisthesis of L5 over S1. 5 mm retrolisthesis of L4 over L5. Severe degenerative spondylosis from L3 through S1, as detailed above.
== END 2024-01-10 10:25 | disposition home or self-care (01) ==
LOC: CHSIMG 10:27
PROVIDERS: PCP Family Medicine; Visit Provider Family Medicine
DX: M54.16 Radiculopathy, lumbar region (principal); M43.17 Spondylolisthesis, lumbosacral region; M53.86 Other specified dorsopathies, lumbar region
CPT/HCPCS: 72100

== ENCOUNTER 2024-01-19 08:45 | Outpatient (CLI) | payer MEDICARE, SELFPAY | END 2024-01-19 08:46 | disposition home or self-care (01) | PROVIDERS: PCP Family Medicine; Visit Provider Family Medicine | DX: M54.16 Radiculopathy, lumbar region (principal) | CPT/HCPCS: 99199 ==

== ENCOUNTER 2024-01-28 08:48 | Outpatient (CLI) | payer MEDICARE, SELFPAY ==
--- NOTE | ~2024-01-28 | MR_ITS ---
Procedure: MR lumbar spine wo con Ordering provider: Jer Gomez MD History: 68 years Female with . radiculopathy lumbar spine, spinal instabilities . Comparison: None. Technique: MRI lumbar spine without contrast. FINDINGS: CONUS MEDULLARIS: Normal in position and appearance. The conus ends at the level of T12-L1. LUMBAR VERTEBRAL BODIES: Spondylolisthesis at the level of L5-S1 of first degree. Bilateral spondylo lysis at the same level. No compression fracture or subluxation. Normal marrow signal. Severe bending at the level of sacrococcygeal junction. DISK SPACES: Narrowing of the disc spaces L3-L4, L4-L5 and L5-S1.. T12-L1: No stenosis. L1-L2: No stenosis. L2-L3: Mild spinal canal stenosis secondary to broad based disc bulge, facet arthropathy, and ligame ntum flavum hypertrophy. Bilateral narrowing of the foramina with nerve root compression bilaterally. L3-L4: Mild spinal canal stenosis secondary to broad based disc bulge, facet arthropathy, and ligamen harjit flavum hypertrophy. Diffuse disc bulge. Bilateral narrowing of the foramina. Left nerve root comp ression. L4-L5: [id number] Severe spinal canal stenosis secondary to broad based disc bulge, facet arthropat hy, and ligamentum flavum hypertrophy. Bilateral facet joint disease. L5-S1: [id number] Severe spinal canal stenosis secondary to broad based disc bulge, facet arthropat hy, and ligamentum flavum hypertrophy. Bilateral facet joint disease with calcification seen medially bilaterally more on the left side PARASPINOUS SOFT TISSUES: Normal. IMPRESSION: 1. Multilevel degenerative disc disease with variable degree of stenoses and neural impingement. 2. No acute osseous abnormality seen. Reviewed, dictated and finalized at location A. IMPRESSION: 1. Multilevel degenerative disc disease with variable degree of stenoses and n eural impingement. 2. No acute osseous abnormality seen.
== END 2024-01-28 08:49 | disposition home or self-care (01) ==
PROVIDERS: PCP Family Medicine; Visit Provider Family Medicine
DX: M51.16 Intervertebral disc disorders with radiculopathy, lumbar region (principal); M53.2X6 Spinal instabilities, lumbar region; M48.061 Spinal stenosis, lumbar region without neurogenic claudication
CPT/HCPCS: 72148

== ENCOUNTER 2024-02-14 01:35 | Emergency (ER) | payer MEDICARE, SELFPAY ==
[2024-02-14] VITALS (17 sets, daily range): BP systolic 120–159; BP diastolic 46–71; PULSE 61–77; RESP 8–20; TEMP 36.2–36.6; O2SAT 93–100
--- NOTE | ~2024-02-14 | XR_ITS ---
Portable chest x-ray Comparison: None Clinical History: Chest pain Findings: Probable calcified granuloma medial left lung apex. Lungs are otherwise clear, without foca l consolidation or pleural effusion. Cardiomediastinal silhouette is stable. Bones and soft tissues are unremarkable. Impression: Probable calcified left upper lobe granuloma, otherwise clear lungs. Reviewed, dictated and finalized at location . Impression: Probable calcified left upper lobe granuloma, otherwise clear lungs.
--- NOTE | 2024-02-14 01:36 | ECG_ITS ---
Test Date: 2024-02-14 01:40:31 Measurements Intervals [place] Rate: 72 P: 25 MD: 213 QRS: 24 QRSD: 120 T: 18 QT: 369 QTc: 404 Interpretive Statements SINUS RHYTHM WITH FIRST DEGREE AV BLOCK POSSIBLE LEFT ATRIAL ENLARGEMENT [-0.1mV P-WAVE IN V1/V2] POSSIBLE ANTERIOR MYOCARDIAL INFARCTION , OF INDETERMINATE AGE [30 ms Q WAVE IN V3/V4, OR R < 0.2 mV IN V4] No previous ECG available for comparison Electronically Signed On 02-14-2024 14:34:40 CDT by Stephanie Hong M.D.
--- NOTE | 2024-02-14 01:40 | ED.CHESTPAIN ---
HPI - Chest Pain General Chief Complaint: Chest Pain Stated Complaint: chest pain Time Seen by Provider: 02/14/24 01:40 Source: patient Mode of arrival: ambulatory Limitations: no limitations History of Present Illness HPI narrative: 68 YEARS OLD WHITE FEMALE CAME TO THE EMERGENCY ROOM BECAUSE OF HEAVINESS AT THE LOWER PART OF THE STERNUM PROBABLY WAKE HER UP FROM SLEEP OR SHE GOT UP FROM SLEEP AND NOTICED THAT SHE HAVE THAT KIND OF PAIN. NO RADIATION. WAS 12/18, CURRENTLY 09/17. PATIENT IS TELLING ME THAT THE SYMPTOMS IS IMPROVING. SHE DENIES ANY AGGRAVATING OR RELIEVING FACTORS, HISTORY OF SLEEP APNEA, DIABETES, HYPERTENSION, HYPERLIPIDEMIA AND ATRIAL FIBRILLATION. PATIENT CURRENTLY ON ELIQUIS. Related Data Home Medications Medication Instructions Recorded Confirmed citalopram 40 mg tablet 40 mg PO DAILY 06/21/19 11/14/23 doxazosin 2 mg tablet 2 mg PO DAILY 06/21/19 11/14/23 multivitamin 1 tablet PO DAILY 08/19/20 11/14/23 apixaban 5 mg tablet (Eliquis) 5 mg PO BID 08/22/20 11/14/23 oxybutynin chloride 10 mg 10 mg PO HS 08/24/22 11/14/23 tablet,extended release 24 hr cyanocobalamin (vitamin B-12) 1,000 mcg PO 3XW 11/25/22 11/14/23 1,000 mcg tablet (Vitamin B-12) flecainide 50 mg tablet 50 mg PO BID 11/25/22 11/14/23 glucagon 1 mg/0.2 mL subcutaneous 1 mg subcut ONCE PRN Hypoglycemia 11/25/22 11/14/23 auto-injector ([employer] HypoPen 2-Pack) cholecalciferol (vitamin D3) 25 25 mcg PO HS 01/18/23 11/14/23 mcg (1,000 unit) capsule diltiazem HCl 120 mg 120 mg PO BID 01/18/23 11/14/23 capsule,extended release 12 hr hydrochlorothiazide 25 mg tablet 25 mg PO BID 01/18/23 11/14/23 losartan 100 mg tablet 100 mg PO DAILY 01/18/23 11/14/23 nortriptyline 25 mg capsule 25 mg PO HS 01/18/23 11/14/23 Allergies Allergy/AdvReac Type Severity Reaction Status Date / Time Cephalosporins Allergy Mild RASH Verified 02/02/24 10:32 Sulfa (Sulfonamide Allergy Mild Rash Verified 02/02/24 10:32 Antibiotics) cefuroxime Allergy Unknown Rash Verified 02/02/24 10:32 Review of Systems Review of Systems: All systems reviewed & are unremarkable except as noted in HPI and below PMFSH Past Medical History Medical History Arthritis Atrial fibrillation with controlled ventricular rate Body mass index (BMI) 35 or more (10/26/18) Depression Diabetic peripheral neuropathy Dyslipidemia Edema of both legs Essential hypertension Hyperlipidemia due to type 1 diabetes mellitus Lipoma of breast Morbid obesity with BMI of 40.0-44.9, adult JOHANA on CPAP Osteopenia after menopause Osteoporosis Other and unspecified hyperlipidemia Post-menopausal Postmenopausal bleeding Pure hypercholesterolemia Thickened endometrium Type 1 diabetes mellitus with hyperglycemia Umbilical hernia Surgical History Surgical History History of D&C Family History Family History Father Hypertension Heart disease Mother Hypertension Family history of Parkinson's disease Sibling AVM (arteriovenous malformation) brain Other Diabetes mellitus Family history of congestive heart failure Family history of obesity Social History Social History Smoking packs per day: 0 Smoking cigarettes per day: 0.0 Years smoked: 0 Smoking pack-years: 0.00 Smoking status: Never smoker Second hand tobacco smoke exposure: No Alcohol intake: current Drinks per week: 1 Alcohol use details: socially Substance use: never Substance use type: does not use Do You Feel Safe in your Home?: Yes Lack of Transportation: No Lack of Food: Never True Current Housing: I Have Housing Concerned About Future Housing: No Difficulty Paying Gas/Electric Bills: No Difficulty Paying for Meds: No Currently Unemployed: No Education: [employer]
[2024-02-14] MEDS: ASPIRIN 81 MG CHEWABLE TABLET 324 MG PO (01:49)
[2024-02-14 01:58] LABS: Basophils Absolute Auto 0.06 K/mm3 (0.00-0.10); Basophils Percent Auto 0.7 % (0.0-1.0); Eosinophils Absolute Auto 0.25 K/mm3 (0.02-0.50); Eosinophils Percent Auto 2.8 % (1.0-6.0); Hematocrit 38.2 % (35.0-42.0); Hemoglobin 13.2 g/dL (11.7-13.8); Immature Granulocyte Absolute 0.02 K/mm3 (0.00-0.00); Immature Granulocyte Percent A 0.2 % (0.0-0.0); Lymphocytes Absolute Auto 2.84 K/mm3 (1.10-4.50); Lymphocytes Percent Auto 32.1 % (18.0-42.0); Mean Corpuscular HGB Conc 34.6 g/dL (32-36); Mean Corpuscular Hemoglobin 33.2 pg (27.0-31.0); Mean Platelet Volume 9.5 fl (9.2-11.8); Monocytes Absolute Auto 0.83 K/mm3 (0.10-0.90); Monocytes Percent Auto 9.4 % (2.0-11.0); Neutrophils Absolute Auto 4.86 K/mm3 (1.70-7.20); Neutrophils Percent Auto 54.8 % (50.0-70.0); Platelet Count Result 272 K/mm3 (150-420); Red Blood Count 3.98 M/mm3 (4.20-5.40); Red Cell Distribution Width 12.3 % (11.6-14.4); White Blood Count 8.9 K/mm3 (4.8-10.8)
[2024-02-14] MEDS: NITROGLYCERIN SL 0.4 MG TABLET SUBLINGUAL (01:58)
[2024-02-14 02:11] LABS: Partial Thromboplastin Time 27.3 Sec (23.9-30.70); Prothrombin Time 11.2 Seconds (9.50-12.1)
--- NOTE | 2024-02-14 02:14 | PC.NURSE ---
Pt resting, continuing to monitor, NSR on monitor. Pt denies any pain at this time. Explained to pt about wait times for labs. Lights dimmed, call belcher at side.
[2024-02-14 03:22] LABS: Alanine Aminotransferase 22 U/L (6-35); Albumin Level 3.9 g/dL (3.5-5.1); Alkaline Phosphatase 73 U/L (38-126); Anion Gap 5 mmol/L (4-12); Aspartate Amino Transferase 31 U/L (14-36); Bilirubin,Total 0.4 mg/dL (0.2-1.3); Blood Urea Nitrogen 27 mg/dL (7-17); Calcium 9.1 mg/dL (8.4-10.2); Carbon Dioxide 34 mmol/L (22-30); Chloride 91 mmol/L (98-107); Estimated CRCL calculation 66 ml/min; Estimated Glomerular Filt Rate > 60; Glucose 130 mg/dL (65-110); Lipase 51 U/L (23-300); Osmolality Calculated 277 mOsm/kg (285-295); Potassium 3.3 mmol/L (3.4-5.0); Sodium 130 mmol/L (137-145)
[2024-02-14 03:34] LABS: Troponin I < 0.012 ng/mL (0.000-0.034)
--- NOTE | 2024-02-14 03:36 | PC.NURSE ---
Pt sleeping, continuing to monitor, VSS. Awaiting lab results and another 3 hr timed trop as per order.
[2024-02-14 04:18] LABS: NT Pro B Type Natriuretic Pept 53 pg/mL (19.9-100)
--- NOTE | 2024-02-14 05:03 | PC.NURSE ---
Pt sleeping, no changes, pt remains pain free, VSS, SR on monitor, awaiting 2nd set of trop levels to return. Continuing to monitor.
[2024-02-14 06:28] LABS: Troponin I < 0.012 ng/mL (0.000-0.034)
--- NOTE | 2024-02-14 06:29 | PC.NURSE ---
Pt resting, remains pain free, VSS, monitor shows NSR.
== END 2024-02-14 06:40 | disposition home or self-care (01) ==
PROVIDERS: Emergency Provider Emergency Medicine; PCP Family Medicine
DX: R10.13 Epigastric pain (principal); I48.91 Unspecified atrial fibrillation; E78.5 Hyperlipidemia, unspecified; I10 Essential (primary) hypertension; E10.9 Type 1 diabetes mellitus without complications; G47.30 Sleep apnea, unspecified; Z79.01 Long term (current) use of anticoagulants; Z79.82 Long term (current) use of aspirin
CPT/HCPCS: 36415; 71045; 80053; 83690; 83880; 84484; 85025; 85610; 85730; 93005; 99284; A9270

== ENCOUNTER 2024-02-21 12:55 | Outpatient (RCR) | payer MEDICARE, SELFPAY ==
--- NOTE | 2024-02-21 15:06 | PTOPEVAL1 ---
Assessment and note entered by Yazmin Childs DPT Evaluation Information Assessment Status Evaluation Diagnosis low back pain, L LE radiating pain ICD-10 Condition Codes (PT) M54.16 Other ICD-10 Condition Codes ( m47. 816, m54.59 PT) Onset 02/15/24 Subjective Information Patient reports that about a month ago she moved and since has had back pain with pain radiating down the L LE. She reports pain is worse when she first wakes up. She reports that standing, walking and sitting on hard surfaces increase her pain. She reports that Tylenol will help to decrease pain but pain is always present. She denies trouble sleeping. Patient is retired. Reported Pain Level Pain Score 4: Self Report Assessment PT Clinical Summary Tara Agosto is a 68 year old female who presents to PT with low back pain and L LE radiating pain. She demonstrates decreased B LE flexibility, decreased B LE strength and impaired posture impairing her ability to stand for house hold tasks, ambulate prolonged distances to grocery shop and sit for long periods of time. She would benefit from skilled PT to address impairments and return to OF. Plan of Care Interventions Electrical Stimulation,Gait Training,Hot Pack/Cold Pack,Manual Therapy,Mechanical Traction,Neuro Re- education,Patient/Caregiver Educati,Therapeutic Activities,Therapeutic Exercise PT Services Indicated Yes Treatment Frequency and 2x weekly for 10 visits Duration These treatments will address the objective and functional deficits as defined above. The patient will be advanced safely and appropriately in order for the patient to progress towards his/her prior level of function. Additional exercises will be introduced and as well as a comprehensive home exercise program upon discharge, if needed, ?to ensure carryover of functional gains achieved in the clinic. This treatment plan has been reviewed and agreement upon by the patient.
--- NOTE | 2024-03-21 11:28 | OPREHPOC ---
Outpatient Therapy Plan of Care This is a Multidisciplinary Plan of Care that may contain components documented by all disciplines (PT, OT, and ST.) PT Problem 1 PT Problem #1 Knowledge Deficit PT Goal 1 Goal / Goal Update Patient to demonstrate independence with HEP Target Visit 10 Progress Met PT Goal 2 Goal / Goal Update Continue to progress Target Visit 20 PT Problem 2 PT Problem #2 Pain PT Goal 1 Goal / Goal Update Patient to report highest pain at 2/10 Target Visit 10 Progress Not Met PT Goal 2 Goal / Goal Update continue Target Visit 20 PT Problem 3 PT Problem #3 Impaired Strength PT Goal 1 Goal / Goal Update Patient to demonstrate 4+/5 B LE strength to return to house hold chores and squatting at PLOF Target Visit 10 Progress Partially Met PT Goal 2 Goal / Goal Update Continue for L hip Target Visit 20 PT Problem 4 PT Problem #4 Impaired Functional Mobil PT Goal 1 Goal / Goal Update 1. Patient to demonstrates 10% improvement on LEFS -not met 2. Patient to report ability to stand for >30 minutes without onset of radiating pain to complete house hold tasks -not met 3. Patient to demonstrate 20 deg of B HS length in order to decrease pain with prolonged ambulation -met Target Visit 10 Progress Partially Met PT Goal 2 Goal / Goal Update Continue 1 & 2 Target Visit 20
--- NOTE | 2024-03-21 11:29 | PTOPPROG ---
Assessment and note entered by Chiara Steve, PT Evaluation Information Assessment Status Progress Diagnosis LBP, L LE radiating pain ICD-10 Condition Codes (PT) M54.16 Other ICD-10 Condition Codes ( M47.816, M54.59 PT) Onset 02/15/24 Subjective Information Tara Agosto reports that PT has helped some. She still has pain first thing in the am but she is able to get around easier. She does use a cane first thing in the am and when she stands in one spot for more than a minute. She feels she has improved 30-40% overall. She would like to continue skilled PT to see if she can get more improvement. She will see her pain management doctor on 03/28/24. Assessment PT Clinical Summary Tara Agosto has completed 10 skilled PT visits for low back pain with radiation to the left LE. She is reporting overall improvements noting increased mobility. She continues to have pain first thing in the am and with standing more than 1 minute. She does feel she has improved 30-40% overall. She objectively demonstrates improved lumbar AROM and improved hamstring flexibility. She continues to have pain with lumbar extension and left lateral flexion, decreased core strength, and decreased left hip strength. She will continue to benefit from skilled PT to further address ongoing limitations. Plan of Care Interventions Electrical Stimulation,Hot Pack/Cold Pack,Manual Therapy,Patient/Caregiver Educati,Therapeutic Exercise PT Services Indicated Yes Treatment Frequency and Continue skilled PT 2 times a week for 10 visits Duration These treatments will address the objective and functional deficits as defined above. The patient will be advanced safely and appropriately in order for the patient to progress towards his/her prior level of function. Additional exercises will be introduced and as well as a comprehensive home exercise program upon discharge, if needed, ?to ensure carryover of functional gains achieved in the clinic. This treatment plan has been reviewed and agreement upon by the patient.
== END 2024-05-21 23:59 | disposition home or self-care (01) ==
LOC: CHSPT 12:55
PROVIDERS: Visit Provider Nurse Practitioner Family
DX: M54.16 Radiculopathy, lumbar region (principal); M47.816 Spondylosis without myelopathy or radiculopathy, lumbar region; M54.59 Other low back pain
CPT/HCPCS: 97014; 97110; 97140; 97161; G0283

== ENCOUNTER 2024-10-22 13:58 | Outpatient (CLI) | payer MEDICARE, SELFPAY ==
--- NOTE | ~2024-10-22 | MM_ITS ---
EXAMINATION: MM screening priti BI w preethi HISTORY: Screening TECHNIQUE: Craniocaudal and mediolateral oblique 3-D tomosynthesis images were obtained and synthetic 2-D images were generated. CAD analysis was submitted and interpreted. COMPARISON: Comparison to multiple prior studies sequentially, with oldest reviewed study dated 05/12. BREAST PARENCHYMAL COMPOSITION: Not dense: There are scattered areas of fibroglandular density. FINDINGS: There is no evidence of suspicious mass, calcification, or architectural distortion to sugg est malignancy in either breast. There has been no suspicious interval change. IMPRESSION: 1. No mammographic evidence of malignancy. 2. Recommend routine screening mammography in one year. BI-RADS Category 1: Negative Reviewed, dictated and finalized at location B.
--- NOTE | ~2024-10-22 | DEXA_ITS ---
Bone Density Report Name: RENETTA ESPINOSA Age: 69 Sex: Female Ethnicity: White Date of : 1955 Indication: postmenopausal; screening for osteoporosis; height loss; Referring Provider: SHIRAZ BUCKNER Study: Bone densitometry was performed. Exam Date: October 22, 2024 Accession number: [id number] Bone Density: Region BMD T-score Z-score Classification AP Spine(L1, L2, L3) 1.174 1.4 3.3 Normal Femoral Neck (Left) 0.646 -1.8 -0.2 Osteopenia Total Hip (Left) 0.925 -0.1 1.2 Normal Femoral Neck (Right) 0.680 -1.5 0.1 Osteopenia Total Hip (Right) 0.963 0.2 1.5 Normal Femoral Neck Mean 0.663 -1.7 0.0 Osteopenia Total Hip Mean 0.944 0.0 1.4 Normal World Health Organization criteria for BMD impression classify patients as: Normal (T-score at or above -1.0), Osteopenia (T-score between -1.0 and -2.5), or Osteoporosis (T-score at or below -2.5). 10-year Fracture Risk(1): Major Osteoporotic Fracture 9.1% Hip Fracture 1.2% Reported Risk Factors: [place] (), Neck BMD=0.646, BMI=42.9 (1) FRAX(R) Version 3.08. Fracture probability calculated for an untreated patient. Fracture probability may be lower if the patient has received treatment. Previous Exams: Region Exam Age BMD T-score BMD Change BMD Change Date g/cm2 vs Baseline vs Previous AP Spine (L1-L3) 10/22/2024 69 1.174 1.4 0.138 (13.3%)# -0.019 (-1.6%) 06/21/2022 67 1.193 1.6 0.158 (15.2%)# 0.158 (15.2%)# 05/29/2012 57 1.036 0.2 Total Hip(Left) 10/22/2024 69 0.925 -0.1 -0.040 (-4.1%) -0.026 (-2.7%) 06/21/2022 67 0.951 0.1 -0.014 (-1.4%) 0.039 (4.2%)* 06/13/2020 65 0.912 -0.2 -0.052 (-5.4%) -0.052 (-5.4%) 05/29/2012 57 0.965 0.2 Total Hip(Right) 10/22/2024 69 0.963 0.2 -0.017 (-1.7%) 0.025 (2.7%)# 06/21/2022 67 0.937 0.0 -0.042 (-4.3%) 0.020 (2.2%) 06/13/2020 65 0.917 -0.2 -0.062 (-6.3%) -0.062 (-6.3%) 05/29/2012 57 0.979 0.3 *Denotes significance at 95% confidence level, LSC for AP Spine = 0.022 g/cm2, LSC for Total Hip = 0.027 g/cm2 # Denotes dissimilar scan types or analysis methods Clinical Information Provided by Patient: Patient maximum height was 67 Menopause Age: 47 No regular weight bearing exercise Drinks caffeinated beverages Onset of menses at age 16 Number of children 0 Impression: The patient has low bone mass, based on the Left Femoral Neck T-score. No significant bone loss was observed. Discussion: BONE DENSITY IS LOW AT ONE OR MORE SKELETAL SITES. This patient's lowest T-score is low at one or more skeletal sites. It meets the World Health Organization's (WHO) criteria for ?low bone mass? (T-score between -1.0 and -2.5). The patient's 10-year risk of fracture as calculated by FRAX is less than the threshold where pharmacological therapy is recommended by the National Osteoporosis Foundation (NOF). However, all treatment decisions require clinical judgment and consideration of individual patient factors, including patient preferences, comorbidities, previous drug use, risk factors not captured in the FRAX model (e.g., frailty, falls, vitamin D deficiency, increased bone turnover, interval significant decline in bone density) and possible under or overestimation of fracture risk by FRAX. The patient should follow a healthful lifestyle (good nutrition with adequate calcium and vitamin D, and appropriate weight-bearing exercise). Follow-Up: Consider repeating this study in 2 to 3 years to reassess this patient's status, or sooner if there is some new clinical indication. Reported by: [place] on 10/22/2024 2:15:00 PM. Reviewed, dictated and finalized at location A.
--- OUTSIDE RECORDS SUMMARY | 2024-10-22 15:36 | XMS_ITS | Clinical Summary ---
Author Organization [facility] [place] Address [address] [place] [address] Phone Care Team Providers Care Cutting Torch Operator Name Role Phone Unavailable Primary Care Provider Unavailabl e Allergies Active Allergy Reactions Criticality Noted Date Comments Cefuroxime Axetil Hives High 09/16/2009 Medications losartan-hydroc hlorothiazide (HYZAAR) 100-25 mg Oral tabletIndicatio ns:Nipple discharge Take 1 Tab by mouth daily. Active cloNIDine (CATAPRES) 0.2 mg Oral tabletIndicatio ns:Nipple discharge Take 0.2 mg by mouth 3 times daily. Active diltiazem CD 24 hour (CARDIZEM CD) 240 mg Oral capsuleIndicati ons:Nipple discharge Take 240 mg by mouth daily. Active doxazosin (CARDURA) 2 mg Oral tabletIndicatio ns:Nipple discharge Take 2 mg by mouth daily. Active citalopram (CELEXA) 20 mg Oral tabletIndicatio ns:Nipple discharge Take 20 mg by mouth daily at bedtime. Active fluticasone (FLONASE) 50 mcg/Actuation Both Nostril SpSnIndications :Nipple discharge Administer 2 Sprays in each nostril daily. Active ACETAMINOPHEN (TYLENOL 8 HOUR PO)Indications: Nipple discharge Take by mouth. Activ e cpap medical deviceIndicatio ns:Nipple discharge Active Active Problems Patient Care Coordination No te Formatting of this note migh t be different from the original. Pt denies any family hx of breast/ovarian ca Primary Care: No primary provider on file. Referring Provider: Chayito Terry [address] [place] [address] Problem Noted Date Diagnosed Date Intraductal papilloma of breast 10/17/2009 Overview (10/17/2009): Right resected 10/02/2009 Diffuse cystic mastopathy 10/10/2009 Inflammatory disease of breast 10/06/2009 HTN (hypertension) Chronic sinusitis Overview (08/05/2010): Updating IMO/ICD9 Code and Description Sleep apnea Obesity Family History Medical History Relation Name Comments Heart Disease Father Relation Name Status Comments Father Social History Tobacco Use Types Packs/Day Years Used Date Smoking Tobacco: Never Alcohol Use Standard Drinks/Week Comments Yes 0 (1 standard drink = 0.6 oz pur e alcohol) rarely Comments No Sex and Gender Information Value Date Recorded Sex Assigned at Not on file Legal Sex Female 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 Gender Identity Not on file Sexual Orientation Not on file 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 on file Not on file Not on file Last Filed Vital Signs Vital Sign Reading Time Taken Comments Blood Pressure 140/80 09/16/2009 3:37 PM MAKER UP FOLDING Pulse - - Temperature - - Respiratory Rate - - Oxygen Saturation - - Inhaled Oxygen Concentration - - Weight 134.7 kg (297 lb) 09/16/2009 3:37 PM MAKER UP FOLDING Height 167.6 cm (5' 6 ) 09/16/2009 3:37 PM MAKER UP FOLDING Body Mass Index 47.94 09/16/2009 3:37 PM MAKER UP FOLDING Plan of Treatment Health Maintenance Due Date Last Done Comments DTAP/TDAP/TD VACCINES (1 - Tdap) 1976 COLORECTAL SCREENING 2002 Colorectal Cancer Screening 2002 FIT-DNA Q 3 years 2002 FIT/FOBT Q 1 year 2002 Flex Sig/CT Colonography Q 5 years 2002 PNEUMOCOCCAL VACCINE 50+ YEA RS (1 of 1 - PCV) 2007 ZOSTER VACCINE (1 of 2) 2007 BREAST CANCER SCREENING 10/02/2010 10/03/19 10, 07/30/2009, 10/03/2008, Additional history exists OSTEOPOROSIS SCREENING 2022 INFLUENZA VACCINE (#1) 2024 RSV VACCINE (60+ or ) (1 - 1-dose 75+ series) 2032 Procedures Procedure Name Priority Date/Time Associated Diagnosis Comments MAMMO DIAGNOSTIC UNI RIGHT W OR WO CAD Routine 10/02/2009 10:25 AM CDT Abnormal Mammogram, Unspecified from Last 3 Months or Most Recently Relevant to Health Maintenance Results * MAMMO DIGITAL DIAG UNI RIGHT (10/02/2009 10:25 AM CDT) Anatomical Region Laterality Modality Breast Right Mammography Impressions 10/02/2009 5:40 PM CDT : Satisfactory ultrasound-guided preoperative right breast needle localization performed. Dictated by: Clarence Red MD Narrative 10/02/2009 5:40 PM CDT RIGHT BREAST NEEDLE LOCALIZATION WITH ULTRASOUND GUIDANCE, UNILATERAL RIGHT BREAST FULL FIELD DIGITAL DIAGNOSTIC MAMMOGRAM 10/02/09 History: 54-year-old patient with a history of bloody right nipple discharge. Outside sonography reports an intraductal filling defect and ductal dilatation in the 12:00 right breast. Procedure and findings: Ultrasound-guided right breast needle localization procedure and risks were explained to the patient preoperatively. Survey sonographic imaging of the supra-areolar 12-o'clock right breast location shows numerous mild-moderately dilated ducts. One of these is identified with localized cystic appearing dilatation that contains low-level internal echodensity. This duct appears subareolar in the 12:00 position. Overlying nipple complex and periareolar skin of the breast was prepared with Betadine. Under 1% local lidocaine anesthesia, with real-time ultrasound guidance, a 5 cm Ghiatas type localization needle was placed with mediolateral approach to the area of ductal abnormality. The tip of the needle was observed to traverse the cystic dilated duct in question. It was advanced slightly beyond the duct followed by instillation of approximately 0.2 mL methylene blue dye. A beaded, hooked localization wire was then placed and then the needle removed. Sonographically the localization wire appeared in satisfactory position traversing the cystically dilated ductal abnormality. Subsequent two-view full field digital right breast mammogram was obtained to document the localization wire and position. These images were marked and the ultrasound wire localization static images reviewed with the surgeon, Dr. Adri Monge, preoperatively. The patient tolerated the procedure satisfactory with no ill toward effects. She was then transferred to the surgical holding area prior to the planned subareolar duct excision. Procedure Note Yves Mejias MD - 10/03/2009 RIGHT BREAST NEEDLE LOCALIZATION WITH ULTRASOUND GUIDANCE, UNILATERALRIGHT BREAST FULL FIELD DIGITAL DIAGNOSTIC MAMMOGRAM 10/02/09 History: 54-year-old patient with a history of bloody right nippledischarge. Outside sonography reports an intraductal filling defect andductal dilatation in the 12:00 right breast. Procedure and findings: Ultrasound-guided right breast needle localizationprocedure and risks were explained to the patient preoperatively. Surveysonographic imaging of the supra-areolar 12-o'clock right breast locationshows numerous mild-moderately dilated ducts. One of these is identifiedwith localized cystic appearing dilatation that contains low-levelinternal echodensity. This duct appears subareolar in the 12:00 position.Overlying nipple complex and periareolar skin of the breast was preparedwith Betadine. Under 1% local lidocaine anesthesia, with real- timeultrasound guidance, a 5 cm Ghiatas type localization needle was placedwith mediolateral approach to the area of ductal abnormality. The tip ofthe needle was observed to traverse the cystic dilated duct in question.It was advanced slightly beyond the duct followed by instillation ofapproximately 0.2 mL methylene blue dye. A beaded, hooked localizationwire was then placed and then the needle removed. Sonographically thelocalization wire appeared in satisfactory position traversing thecystically dilated ductal abnormality. Subsequent two-view full field digital right breast mammogram was obtainedto document the localization wire and position. These images were markedand the ultrasound wire localization static images reviewed with thesurgeon, Dr. Adri Monge, preoperatively. The patient tolerated the procedure satisfactory with no ill towardeffects. She was then transferred to the surgical holding area prior tothe planned subareolar duct excision. IMPRESSION: Satisfactory ultrasound-guided preoperative right breast needlelocalization performed. Dictated by: Clarence Red MD us Adri Monge MD MAMMO ORDERABLES Final Result from Last 3 Months or Most Recently Relevant to Health Maintenance Insurance
--- OUTSIDE RECORDS SUMMARY | 2024-10-22 15:36 | XMS_ITS | Continuity of Care Document ---
Author Organization [facility] Address [id number] [place] [address] [place] [address] Phone Care Team Providers Care Business Center Representative Name Role Phone Cm Sepulveda DO Unavailable Unavailable Advance Directives Directive Yes / No Effective Date File Name No Information Encounters Encounter Description Practice Location Reason(s) For Visit Diagnoses Date Provider Providers Copied on Encounter [facility], [address], [place], [place], [id number], tel:[phone] [facility] No Information Coco Meyers. [address], [place], [address], [place]. tel:[phone] Referring Provider: Awa Gomez MD, [address], [place], [address]. tel:[phone] Family History Family Member Type Diagnosis Age At Onset No Information Payers Payer name Insurance type Covered republican ID Authoriza tion(s) No Information Social History Type Description Quantity Date Captured Comments Sex Female Smoking Status No Information Chief Complaint And Reason For Visit No Information Reason For Referral Reason For Referral No Information History Of Present Illness Encounter Date Complaint History Of Prese nt Illness No Information Functional Status Date Functional Assessmen t No Information Instructions Date Instruction Additional Infor mation No Information Assessments Type Assessment Date No Information Patient Care Teams Name Effective Dates (start - stop) Status Members No Information
--- OUTSIDE RECORDS SUMMARY | 2024-10-22 15:36 | XMS_ITS | Referral Summary ---
Author Organization [facility] Address [address] [place] [address] Care Team Providers Care Tool Grinder Operator Surface Name Role Phone Jer Gomez MD Primary Care Provide r An Cabral MD Unavailable [phone] Allergies Active Allergy Reactions Criticality Noted Date Comments Cefuroxime Axetil Hives High 09/16/2009 Medications Eliquis 5 mg tablet 2 (two) times a day 1 Active risedronate (ACTONEL) 35 mg tablet every 7 days 1 Active citalopram (CeleXA) 40 mg tablet daily 1 Active dilTIAZem CD 240 mg 24 hr capsule 2 (two) times a day 1 Active losartan (COZAAR) 100 mg tablet daily 1 Active doxazosin (CARDURA) 2 mg tablet daily 1 Active furosemide (LASIX) 20 mg tablet Take 1 tablet (20 mg total) by mouth 2 (two) times a day Active cyanocobalamin, vitamin B-12, 5,000 mcg tablet, sublingual Place under the tongue Active pueasfgr20-itgw-G mfolate-algal 27 mg iron-1.13 mg-581.92 mg capsule Take by mouth Active calcium carbonate-vitamin D3 500 mg(1,250mg) -400 unit chewable tablet Take 1 tablet by mouth daily Active calcium carbonate-vit D3-min 600 mg calcium- 200 unit tablet Take by mouth Active atorvastatin (LIPITOR) 80 mg tablet Take 1 tablet (80 mg total) by mouth daily Active flecainide (TAMBOCOR) 50 mg tabletIndications :Paroxysmal atrial fibrillation (HCC) Take 1 tablet (50 mg total) by mouth 2 (two) times a day 180 tablet 3 4 10/25/19 25 Active Capzasin-HP 0.1 % cream APPLY TO AFFECTED AREA 3 TIMES A DAY NEEDED FOR PAIN -DO NOT WASH ARE FOR 30 MINS 4 Active Active Problems No known active problems Social History Tobacco Use Types Packs/Day Years Used Date Smoking Tobacco: Never Smokeless Tobacco: Never Tobacco Cessation:Counseling Given: Not Answered Personal Safety Answer Date Recorded Getting School Help Needed Not on file 09/03 Comments Unknown Sex and Gender Information Value Date Recorded Sex Assigned at Not on file 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 Gender Identity Not on file Sexual Orientation Not on file Last Filed Vital Signs Vital Sign Reading Time Taken Comments Blood Pressure 148/73 03/15/2024 9:04 AM CDT Pulse 69 03/15/2024 9:04 AM CDT Temperature 36.9 C (98.4 F) 09/19/2020 9:03 AM METAL MACHINIST Respiratory Rate 16 03/15/2024 9:04 AM CDT Oxygen Saturation 97% 03/15/2024 9:04 AM CDT Inhaled Oxygen Concentration - - Weight 104.8 kg (231 lb) 03/15/2024 9:04 AM CDT Height 165.1 cm (5' 5 ) 11/17/2023 8:53 AM CDT Body Mass Index 38.44 11/17/2023 8:53 AM CDT Plan of Treatment Not on file Insurance [facility] MEDICARE [facility] MEDICARE [employer] Care Teams Tool Grinder Operator Surface Relationship Specialty Start Date End Date Jer Gomez MD [address] [place] [address] PCP - General Family Medicine 09/03/20 An Cabral MD [address] [place] [address] Referring Physician Obstetrics and Gynecology 09/03/20
--- OUTSIDE RECORDS SUMMARY | 2024-10-22 15:36 | XMS_ITS | Clinical Summary ---
Author Organization [facility] Address [address] [place] [address] Care Team Providers Care Yard Labor Supervisor Name Role Phone Jer Gomez MD Primary Care Provide r An Cabral MD Unavailable [phone] Allergies Active Allergy Reactions Criticality Noted Date [...] tablet, sublingual Place under the tongue Active sanfazyn18-hwww-A mfolate-algal 27 mg iron-1.13 mg-581.92 mg capsule [...] Active Active Problems No known active problems Surgical History Surgery Date Site/Laterality Comments DILATION AND CURETTAGE OF UTERUS 07/11/2020 - 07/10/2021 HERNIA REPAIR 1957 - 07/10/1958 umbilical CYSTIC FIBROSIS (CF): CFTR ( FULL GENE SEQUENCING) WITH REFLEX TO DELETION/DUPLICATION ANALYSIS 07/11/1999 - 07/10/2000 Medical History Medical History Date Comments Afib (HCC) Hypertension Diabetes mellitus (HCC) Obstructive sleep apnea Family History Medical History Relation Name Comments Parkinsonism Brother 1 Ed No Known Problems Brother 2 Bill Heart disease Father Parkinsonism Mother Relation Name Status Comments Brother 1 Ed Alive Brother 2 Bill Alive Father Mother Social History Tobacco Use Types Packs/Day Years Used Date Smoking Tobacco: Never Smokeless Tobacco: Never Tobacco Cessation:Counseling Given: Not Answered Personal Safety Answer Date Recorded Getting School Help Needed Not on file 09/03 Comments Unknown Sex and Gender Information Value Date Recorded Sex Assigned at Not on file 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 Gender Identity Not on file Sexual Orientation Not on file Obstetrics History Para Term AB IAB SAB Ectopic Multiple Livin g Live Births 0 0 0 0 0 0 0 0 0 0 0 Last Filed Vital Signs Vital Sign Reading Time Taken Comments Blood Pressure 148/73 03/15/2024 9:04 AM CDT Pulse 69 03/15/2024 9:04 AM CDT Temperature 36.9 C (98.4 F) 09/19/2020 9:03 AM NATURAL SCIENCES DEPARTMENT CHAIR Respiratory Rate 16 03/15/2024 9:04 AM CDT Oxygen Saturation 97% 03/15/2024 9:04 AM CDT Inhaled Oxygen Concentration - - Weight 104.8 kg (231 lb) 03/15/2024 9:04 AM CDT Height 165.1 cm (5' 5 ) 11/17/2023 8:53 AM CDT Body Mass Index 38.44 11/17/2023 8:53 AM CDT Plan of Treatment Health Maintenance Due Date Last Done Comments Breast Cancer Screening-Mammogram 1957 Colon Cancer Screening-Colonoscopy 1957 Depression Screening 1957 Fall Risk Assessment 1957 Hepatitis C Screening 1957 Osteoporosis Screening-Bone Density Scan 1957 Hepatitis B Screening 1975 Zoster Vaccine (1 of 2) 2007 Pneumococcal vaccine 65+ (2 of 2 - PCV) 05/02/2018 1 Well Visit 65+ 2022 Influenza Vaccine (#1) 2024 DTaP/Tdap/Td Vaccine (3 - Td or Tdap) 03/04/2026, 02/01/2015 Insurance [facility] [place] [address] MEDICARE [facility] Care Teams Yard Labor Supervisor Relationship Specialty Start Date End Date Jer Gomez MD [address] [place] [address] PCP - General Family Medicine 09/03/20 An Cabral MD [address] [facility] [address] [address] Referring Physician Obstetrics and Gynecology 09/03/20
== END 2024-10-22 13:59 | disposition home or self-care (01) ==
LOC: CHSIMG 13:59
PROVIDERS: PCP Family Medicine; Visit Provider Nurse Practitioner Obstetrics & Gynecology
DX: Z12.31 Encounter for screening mammogram for malignant neoplasm of breast (principal); Z78.0 Asymptomatic menopausal state
CPT/HCPCS: 77063; 77067; 77080

== ENCOUNTER 2025-01-07 06:55 | Outpatient (CLI) | payer MEDICARE, SELFPAY ==
[2025-01-07 08:37] LABS: Alanine Aminotransferase 27 U/L (6-35); Albumin Level 3.6 g/dL (3.5-5.1); Alkaline Phosphatase 57 U/L (38-126); Anion Gap 3 mmol/L (4-12); Aspartate Amino Transferase 26 U/L (14-36); Bilirubin,Total 0.7 mg/dL (0.2-1.3); Blood Urea Nitrogen 21 mg/dL (7-17); Calcium 8.8 mg/dL (8.4-10.2); Carbon Dioxide 31 mmol/L (22-30); Chloride 98 mmol/L (98-107); Cholesterol 175 mg/dL (0-200); Estimated Glomerular Filt Rate > 60; Glucose 96 mg/dL (65-110); HDL Direct 85 mg/dL; LDL Cholesterol Calculated 81 mg/dL (<130); Magnesium 1.7 mg/dL (1.6-2.3); Osmolality Calculated 277 mOsm/kg (285-295); Potassium 3.5 mmol/L (3.4-5.0); Sodium 132 mmol/L (137-145); Total Protein 5.9 g/dL (6.3-8.2); Triglycerides 43 mg/dL (<150)
== END 2025-01-07 06:56 | disposition home or self-care (01) ==
LOC: CHSLAB 06:56
PROVIDERS: PCP Family Medicine; Visit Provider Internal Medicine Cardiovascular Disease
DX: E10.65 Type 1 diabetes mellitus with hyperglycemia (principal); E78.5 Hyperlipidemia, unspecified
CPT/HCPCS: 36415; 80053; 80061; 83036; 83735

== ENCOUNTER 2025-06-20 14:25 | Outpatient (CLI) | payer MEDICARE, SELFPAY ==
--- NOTE | 2025-06-20 14:30 | ECG_ITS ---
Test Date: 2025-06-20 14:40:21 Measurements Intervals [place] Rate: 64 P: 59 MS: 223 QRS: 57 QRSD: 121 T: 54 QT: 367 QTc: 379 Interpretive Statements SINUS RHYTHM WITH FIRST DEGREE AV BLOCK POSSIBLE LEFT ATRIAL ENLARGEMENT INTRAVENTRICULAR CONDUCTION DELAY DELAYED PRECORDIAL R/S TRANSITION BORDERLINE ST-T WAVE ABNORMALITY- INF/LAT LEADS BASELINE WANDER- II, III, AVR, AVF BORDERLINE ECG Compared to ECG 02/14/2024 01:40:31 NO SIGNIFICANT CHANGE Electronically Signed On 06-20-2025 16:30:27 BLEACH PACKER by Chidi Worthy D.O.
== END 2025-06-20 14:26 | disposition home or self-care (01) ==
LOC: CHSLAB 14:27
PROVIDERS: PCP Family Medicine; Visit Provider Internal Medicine Cardiovascular Disease
DX: I48.91 Unspecified atrial fibrillation (principal); I44.0 Atrioventricular block, first degree
CPT/HCPCS: 93005